=== PATIENT | male | born 1960 | race Caucasian/White ===

== ENCOUNTER 2020-07-28 11:48 | Emergency (ER) | payer OTHER, SELFPAY ==
[2020-07-28 12:21] VITALS: BP 138/58; PULSE 57; RESP 18; TEMP 36.5; O2SAT 99; BMI 37.5
--- NOTE | 2020-07-28 12:35 | ED.BACK ---
HPI - Back Pain/Injury General Chief Complaint: Extremity Injury, Lower Stated Complaint: back pain Time Seen by Provider: 07/28/20 12:13 Source: patient Mode of arrival: ambulatory Limitations: language barrier History of Present Illness HPI Narrative: 59 y/o male with history of chronic back pain presenting with 5 days of worsening right sided back and hip pain. Denies injury. He states he gets a flare up of this type of pain every few years. Upon review of records he was last seen here in 2019 for similar complaints. He denies numbness, tingling, weakness, incontinence. MD elicited complaint: back pain Pertinent past history: prior back pain Related Data Previous Rx's Medication Instructions Recorded cyclobenzaprine 10 mg PO TID PRN #15 tab 07/28/20 hydrocodone-acetaminophen [[place]] 1 tab PO Q8H PRN #6 tab 07/28/20 ibuprofen 600 mg PO Q8H PRN #14 tab 07/28/20 lidocaine [Lidoderm] 1 patch TOPICAL DAILY #15 ea 07/28/20 Allergies Allergy/AdvReac Type Severity Reaction Status Date / Time No Known Allergies Allergy Verified 07/28/20 12:23 Review of Systems Review of Systems: Constitutional: No Fever, No Chills Gastrointestinal: No Nausea, No Vomiting, No Diarrhea, No abdominal Pain Genitourinary: No Dysuria, No Urinary Frequency, No Hematuria Musculoskeletal: + joint pain, + Myalgias Skin: No Skin Lesions, No rash Neuro: No Weakness, No Numbness, No Dizziness, No Headache Endocrine: No Polyuria, No Polydipsia PMFSH Past Medical History Attestation statement: The following information was validated with the patient. Medical History High blood pressure Social History Social History Advance Directives: No Advance Directives Information Provided: No Physical Exam Vital Signs: Vital Signs: Last Vital Signs Temp 97.7 F 07/28/20 12:21 Pulse 57 07/28/20 12:21 Resp 18 07/28/20 12:21 BP 138/58 L 07/28/20 12:21 Pulse Ox 99 07/28/20 12:21 Body Mass Index 37.5 Appearance: Alert. Oriented X3. No acute distress. HEENT: normal inspection Respiratory: No respiratory distress. Extremities: normal LE, no edema. Back: right sided SI joint tenderness and surrounding soft tissue tenderness with spasm. Neuro: Oriented X 3. No motor deficit. No sensory deficit. Course Course Course Narrative: 59 y/o male with right sided low back pain and buttock pain that has been present for 5 days - worsened today after he tied his shoes. Similar to previous episodes. No red flag symptoms. Will treat with NSAID, muscle relaxer and short course of [place]. Patient will f/u with PCP on Thursday. Stable for d/c. MDM - Back Pain/Injury Differential Diagnosis Differential diagnosis: Likely lumbar radiculopathy, sciatica and strain of lumbar region Critical Care Time Critical Care Time Critical Care Time: No Discharge Plan Discharge Clinical Impression: Strain of lumbar region Qualifiers: Encounter type: initial encounter Qualified Code(s): S39.012A - Strain of muscle, fascia and tendon of lower back, initial encounter Patient Disposition: Home, Self-Care Instructions: Low Back Strain (ED), Lower Back Exercises (ED) Additional Instructions: Use ice and/or heat to the area several times per day. Limit bending, lifting >10 lbs, or twisting motions. Take prescribed medications as needed for pain/discomfort. Follow up with your doctor next week. If you develop weakness, numbness, tingling, incontinence or loss of function come back to the ER for further evalution. Prescriptions: New cyclobenzaprine 10 mg tablet 10 mg PO TID PRN (Reason: muscle spasm) Qty: 15 RF: 0 lidocaine [Lidoderm] 5 % adhesive patch,medicated 1 patch topical DAILY Qty: 15 RF: 0 ibuprofen 600 mg tablet 600 mg PO Q8H PRN (Reason: pain) Qty: 14 RF: 0 hydrocodone-acetaminophen [[place]] 5-325 mg tablet 1 tab PO Q8H PRN (Reason: pain) Qty: 6 RF: 0 Interventions: ED Discharge Assessment Last Done: 07/28/20 12:46 Discharge Date/Time: 07/28/20 12:50 Print Language: Turkish
== END 2020-07-28 12:50 | disposition home or self-care (01) ==
PROVIDERS: Emergency Provider Internal Medicine; PCP Internal Medicine
DX: S39.012A Strain of muscle, fascia and tendon of lower back, initial encounter (principal); X58.XXXA Exposure to other specified factors, initial encounter; Y93.9 Activity, unspecified; Y92.9 Unspecified place or not applicable; Y99.9 Unspecified external cause status; Z79.899 Other long term (current) drug therapy
CPT/HCPCS: 99283

== ENCOUNTER 2020-08-13 08:30 | Emergency (ER) | payer OTHER, SELFPAY ==
[2020-08-13 09:36] VITALS: BP 130/60; PULSE 100; RESP 20; TEMP 37.2; O2SAT 95; BMI 37.5
--- NOTE | 2020-08-13 09:46 | XR_ITS ---
EXAMINATION: XR CHEST CLINICAL INFORMATION: Cough. Pneumonia. COMPARISON: Chest 09/03/2019 TECHNIQUE: Frontal view of the chest was obtained. FINDINGS: The lungs are hypoexpanded but clear of acute process. The heart size and pulmonary vascularity is normal. There is moderate spondylosis dorsal spine. No lytic process. XR/XR chest 1V IMPRESSION: Unremarkable chest exam.
--- NOTE | 2020-08-13 09:48 | ED.URI ---
HPI - URI/Sore Throat General Chief Complaint: Upper Respiratory Symptoms Stated Complaint: sore throat Time Seen by Provider: 08/13/20 09:36 Source: patient Mode of arrival: ambulatory Limitations: no limitations History of Present Illness HPI Narrative: Patient presents to the ED for coughing, stuffy nose, sore throat, body aches, and night sweats for the past 4 days. Patient denies any chest pain. Patient denies any swelling of lower extremities, calf pain, coughing up blood. Patient states presently he does not have any shortness of breath. MD elicited complaint: cough, sore throat, rhinorrhea and nasal congestion Related Data Previous Rx's Medication Instructions Recorded cyclobenzaprine 10 mg PO TID PRN #15 tab 07/28/20 hydrocodone-acetaminophen [[place]] 1 tab PO Q8H PRN #6 tab 07/28/20 ibuprofen 600 mg PO Q8H PRN #14 tab 07/28/20 lidocaine [Lidoderm] 1 patch TOPICAL DAILY #15 ea 07/28/20 albuterol sulfate 2 puff INHALATION Q6H PRN #18 g 08/13/20 benzonatate [Tessalon [place]] 100 mg PO TID PRN #15 cap 08/13/20 Allergies Allergy/AdvReac Type Severity Reaction Status Date / Time No Known Allergies Allergy Verified 07/28/20 12:23 Review of Systems Review of Systems: Yes all other systems are reviewed and are negative Constitutional: Constitutional: Reports as per HPI, Reports no additional constitutional complaints, Reports body ache(s), Reports chills, Reports fever(s) and Reports night sweats Eyes: Eyes: Reports as per HPI and Reports no additional eye complaints ENT: Reports system reviewed and no additional complaints, except as documented and Reports as per HPI Cardiovascular: Cardiovascular: Reports as per HPI and Reports no additional cardiovascular complaints Respiratory: Respiratory: Reports as per HPI, Reports no additional respiratory complaints, Reports change in phlegm color (White), Reports chest congestion, Reports cough, Denies pain on inspiration, Denies pain with cough, Reports dyspnea (Resolved) and Reports wheezing Genitourinary: Genitourinary: Reports no additional male genitourinary complaints and Reports as per HPI Musculoskeletal: Musculoskeletal: Reports no additional musculoskeletal complaints and Reports as per HPI Neurologic: Reports system reviewed and no additional complaints, except as documented and Reports as per HPI Psychiatric: Psychiatric: Reports no additional psychiatric complaints and Reports as per HPI Allergic/Immunologic: Allergic/Immunologic: Reports wheezing [facility] Past Medical History Medical History High blood pressure Social History Social History Advance Directives: No Advance Directives Information Provided: No Physical Exam Vital Signs: Vital Signs: Last Vital Signs Temp 99.0 F 08/13/20 09:36 Pulse 99 08/13/20 11:25 Resp 18 08/13/20 11:25 BP 133/71 08/13/20 11:25 Pulse Ox 99 08/13/20 11:25 Body Mass Index 37.5 Const: General: cooperative, healthy appearing, comfortable, no acute distress, well developed, alert, awake and Physically active Orientation/consciousness: patient oriented x3 HENMT: Head: Yes normal to inspection and Yes No palpable skull fracture present Ears: hearing grossly normal bilaterally, external ears normal and TM's normal bilaterally Face and sinus: Yes normal facial exam and Yes sinuses nontender Mouth: Normal oral and palatal mucosa present, lip normal and tongue normal Throat: Yes posterior oropharynx normal, Yes tonsils normal and Yes uvula midline Eyes: General: appearance normal, both eyes and all related structures Neck: Neck: Yes normal visual inspection, Yes full ROM, Yes no lymphadenopathy, Yes no meningeal signs, Yes trachea midline, Yes supple and No tender Chest: Chest palpation & inspection: normal inspection of the chest, normal palpation of entire chest wall and no localized rib tenderness Resp: Effort & Inspection: normal respiratory effort, able to speak in complete sentences, Actively coughing, respiratory effort not decreased, no grunting, not labored, no nasal flaring, no paradoxical thoraco-abdom movements, no pursed lip breathing, no retractions, no segmental paradox chest wall movement, no stridor, not tachypneic, no tracheal deviation and no tripod positioning Auscultation: no crackles, no rales, no rhonchi and wheezes expiratory wheezes Cardio: Jugular venous distension: no JVD Heart sounds: S1 normal heart sound present and S2 normal heart sound present GI: Inspection: Yes normal to inspection and No abdominal wall ecchymosis Palpation (GI): Soft to palpation, not firm, nontender, no guarding and not rigid : General: No CVA tenderness and Yes no CVA tenderness Back/Spine/Pelvis: Back: no CVA tenderness, No CVA tenderness and No back tenderness Skin: General skin exam: no rashes or lesions noted Neuro: General: patient oriented x3, gait normal, no meningeal signs and CN's II-XI intact bilaterally Cranial nerves: Yes CN's II-XII intact bilaterally Extrem: General: Yes normal to inspection and Yes full ROM Psych: Appearance: grossly normal, well kempt and not disheveled Course Course Course Narrative: Patient has wheezing on lungs. Patient denies any history of asthma. Patient does admit to history of bronchitis usually has this every year around this time and it resolved after being given albuterol inhaler. Patient presently does not have albuterol inhaler at home. Patient had chest x-ray, COVID swab, and rapid strep swab sent. Patient also given Tylenol. Patient is not in any distress. Reevaluation(s) Reevaluation #1: Patient not in any respiratory distress. Time: 10:00 Reevaluation #2: Patient's chest x-ray is normal. Time: 10:17 Reevaluation #3: Patient to be discharged with coughing medication, and albuterol pump. Awaiting rapid strep result. Time: 10:53 Additional Reevaluation(s): Rapid strep result negative. Patient is safe for discharge MDM - URI/Sore Throat MDM Narrative Medical decision making narrative: Bronchitis/URI Discharge Plan Discharge Clinical Impression: Bronchitis Patient Disposition: Home, Self-Care Instructions: Acute Bronchitis (ED) Additional Instructions: Return to the ED immediately for shortness of breath, chest pain, coughing up blood, swelling of lower extremity, intractable fever, weakness, or any other concerning symptoms. Recommend 14 days self-isolation if COVID test come back positive or symptoms worsen. Prescriptions: New albuterol sulfate 90 mcg/actuation HFA aerosol inhaler 2 puff inhalation Q6H PRN (Reason: wheezing) Qty: 18 RF: 0 benzonatate [Tessalon Perles] 100 mg capsule 100 mg PO TID PRN (Reason: cough) Qty: 15 RF: 0 No Action cyclobenzaprine 10 mg tablet 10 mg PO TID PRN (Reason: muscle spasm) Qty: 15 RF: 0 lidocaine [Lidoderm] 5 % adhesive patch,medicated 1 patch topical DAILY Qty: 15 RF: 0 ibuprofen 600 mg tablet 600 mg PO Q8H PRN (Reason: pain) Qty: 14 RF: 0 hydrocodone-acetaminophen [[place]] 5-325 mg tablet 1 tab PO Q8H PRN (Reason: pain) Qty: 6 RF: 0 Referrals: Nic Avitia MD [Primary Care Provider] - 2 days (Bronchitis. COVID testing pending) Stand Alone Forms: Work/School Release Interventions: ED Discharge Assessment Last Done: 08/13/20 12:00 Discharge Date/Time: 08/13/20 11:50 Print Language: Occitan
[2020-08-13] MEDS: Acetaminophen 325 MG TABLET 650 MG PO (10:14)
[2020-08-13 11:25] VITALS: BP 133/71; PULSE 99; RESP 18; O2SAT 99
[2020-08-13] MEDS: Albuterol Sulfate 90 MCG 8 GM INHALER 4 PUFF INHALE (11:26)
--- NOTE | 2020-08-13 12:00 | PC.NURSE ---
pt instructed on appropriate use of inhaler with spacer. VS WNL.
== END 2020-08-13 11:50 | disposition home or self-care (01) ==
PROVIDERS: Physician Assistant; Emergency Provider Emergency Medicine; PCP Internal Medicine
DX: J20.9 Acute bronchitis, unspecified (principal); Z20.828 Contact with and (suspected) exposure to other viral communicable diseases; I10 Essential (primary) hypertension
CPT/HCPCS: 71045; 87071; 87147; 87880; 99284; U0003

== ENCOUNTER 2021-10-02 13:41 | Outpatient (REF) | payer OTHER, SELFPAY ==
--- NOTE | ~2021-10-02 | XR_ITS ---
EXAMINATION: XR CHEST CLINICAL INFORMATION: Post Covid condition, wheezing and chills prostate. COMPARISON: None TECHNIQUE: 2 views of the chest were obtained. FINDINGS: No significant abnormality is noted involving the heart, lungs, mediastinum, bony thorax or soft tissues. XR/XR chest 2V IMPRESSION: Unremarkable chest examination.
== END 2021-10-02 13:42 | disposition home or self-care (01) ==
LOC: HO.XRAY 13:41
PROVIDERS: Absent Provider Internal Medicine; PCP Internal Medicine; Visit Provider Emergency Medicine
DX: R68.83 Chills (without fever) (principal); R06.2 Wheezing; U09.9 Post COVID-19 condition, unspecified
CPT/HCPCS: 71046

== ENCOUNTER 2023-05-05 08:27 | Outpatient (REF) | payer OTHER, SELFPAY ==
[2023-05-05 10:47] LABS: Anion Gap 10 (12-20); Blood Urea Nitrogen 14 mg/dL (9-16); Carbon Dioxide 31 mmol/L (22-29); Chloride 102 mmol/L (96-108); Estimated Glomerular Filt Rate 57; Potassium 3.1 mmol/L (3.3-5.1); Sodium 140 mmol/L (135-145)
[2023-05-05 11:24] LABS: Protein/Creatinine Ratio, Ur 0.06 (<0.2); Total Protein Urine Random 27 mg/dL (<12)
== END 2023-05-05 08:28 | disposition home or self-care (01) ==
LOC: HO.LAB 08:27
PROVIDERS: PCP Internal Medicine; Visit Provider Internal Medicine Nephrology
DX: I12.9 Hypertensive chronic kidney disease with stage 1 through stage 4 chronic kidney disease, or unspecified chronic kidney disease (principal); N18.31 Chronic kidney disease, stage 3a
CPT/HCPCS: 36415; 80051; 82310; 82565; 82570; 84156; 84520

== ENCOUNTER 2023-06-01 08:28 | Outpatient (REF) | payer OTHER, SELFPAY ==
[2023-06-01 12:15] LABS: Cholesterol 125 mg/dL (<200); HDL Cholesterol 32 mg/dL (>40); LDL Cholesterol Calculated 63 mg/dL (<100); Triglycerides 154 mg/dL (<150)
[2023-06-01 12:16] LABS: Alanine Aminotransferase 23 U/L (0-40); Albumin Level 3.9 g/dL (3.5-5.0); Alkaline Phosphatase 58 U/L (39-117); Anion Gap 10 (12-20); Aspartate Amino Transferase 22 U/L (5-37); Bilirubin Direct 0.3 mg/dL (0.0-0.5); Bilirubin Total 0.7 mg/dL (0.0-1.0); Blood Urea Nitrogen 13 mg/dL (9-16); Calcium 8.9 mg/dL (8.4-10.2); Carbon Dioxide 32 mmol/L (22-29); Chloride 100 mmol/L (96-108); Estimated Glomerular Filt Rate > 60; Glucose Random 114 mg/dL (60-115); Potassium 3.2 mmol/L (3.3-5.1); Sodium 139 mmol/L (135-145); Total Protein 7.3 g/dL (6.5-8.0)
[2023-06-01 13:06] LABS: Reflex LDLD? No
== END 2023-06-01 08:29 | disposition home or self-care (01) ==
LOC: HO.HHCL 08:28
PROVIDERS: Visit Provider Internal Medicine
DX: I10 Essential (primary) hypertension (principal)
CPT/HCPCS: 36415; 80048; 80061; 80076

== ENCOUNTER 2023-06-10 11:09 | Outpatient (REF) | payer OTHER, SELFPAY | END 2023-06-10 11:10 | disposition home or self-care (01) | LOC: HO.HHCL 11:09 | PROVIDERS: Visit Provider Internal Medicine | DX: I10 Essential (primary) hypertension (principal) | CPT/HCPCS: 36415; 80048 ==

== ENCOUNTER 2023-12-08 11:53 | Outpatient (REF) | payer OTHER, SELFPAY ==
[2023-12-08 13:55] LABS: Anion Gap 9 (12-20); Blood Urea Nitrogen 14 mg/dL (9-16); Calcium 9.3 mg/dL (8.4-10.2); Carbon Dioxide 34 mmol/L (22-29); Chloride 101 mmol/L (96-108); Estimated Glomerular Filt Rate > 60; Glucose Random 140 mg/dL (60-115); Potassium 3.6 mmol/L (3.3-5.1); Sodium 140 mmol/L (135-145)
== END 2023-12-08 11:54 | disposition home or self-care (01) ==
LOC: HO.HHCL 11:53
PROVIDERS: Visit Provider Internal Medicine
DX: I10 Essential (primary) hypertension (principal)
CPT/HCPCS: 36415; 80048

== ENCOUNTER 2024-10-12 08:10 | Outpatient (REF) | payer MEDICARE, SELFPAY ==
--- OUTSIDE RECORDS SUMMARY | 2024-10-12 08:20 | XMS_ITS | Encounter Summary ---
Author Organization [employer] Address [address] [place] [address] Care Team Providers Care Folder Gluer Operator Name Role Phone Nic Swain MD Primary Care Provide r Encounter Details Date Type Department Care Team (Latest Contact Info) Description 10/11/2024 Travel Social History Tobacco Use Types Packs/Day Years Used Date Smoking Tobacco: Never Passive Smoke Exposure: Never Smokeless Tobacco: Never Alcohol Use Standard Drinks/Week Comments Never 0 (1 standard drink = 0.6 oz pur e alcohol) Depression Answer Date Recorded Patient Health Questionnaire-9 Score 1 10/11/2024 Patient Health Questionnaire-9 Score 1 10/11/2024 Last PHQ-9: Questionnaire Data Not on file 0 10/11/2024 Housing Stability Answer Date Recorded What is your housing situation today? I have [employer] [employer] 10/11/[address] you li ve. Do you have problems with any of the following? None of the above 10/11/2024 Food Insecurity Answer Date Recorded Within the past 12 months, y ou worried that your food would run out before you got money to buy more: Never True 10/11/2024 Within the past 12 months,th e food you bought just didn't last and you didn't have enough money to get more: Never True 07/2025 Transportation Answer Date Recorded In the past 12 months, has l ack of transportation kept you from medical appts, meetings, work or from getting things needed for daily living? No 10/11/2024 Utilities Answer Date Recorded In the past 12 months, has t he electric, gas, oil or water company threatened to shut off services in your home? No 10/11/2024 Depression Answer Date Recorded Patient Health Questionnaire-2 Score 0 10/11/2024 Internet Access Answer Date Recorded Internet Access Q1 I am not sure 10/11/2024 Internet Access Q2 Not on file 10/11/2024 Sex and Gender Information Value Date Recorded Sex Assigned at Male 06/30/2022 10:17 AM EDT Legal Sex Male 10:17 AM EDT Gender Identity Male 06/30/2022 10:17 AM EDT Sexual Orientation Straight 06/30/2022 10 :17 AM EDT documented as of this encounter Plan of Treatment Upcoming Encounters Date Type Department Care Team (Late st Contact Info) Description 01/10/2025 1:15 PM EDT Office Visit [facility] [address] [place] [address] Nic Swain MD [address] [place] [id number] documented as of this encounter Visit Diagnoses Not on filedocumented in this encounter Additional Health Concerns Assessment Noted Time PHQ-9 Depression Total Score: 1 10/11/19 25 1:15 PM EST documented as of this encounter Care Teams Folder Gluer Operator Relationship Specialty Start Date End Date Nic Swain MD [address] [place] [id number] PCP - General Internal Medicine 05/09/14 documented as of this encounter
--- OUTSIDE RECORDS SUMMARY | 2024-10-12 08:21 | XMS_ITS | Encounter Summary ---
Author Organization [employer] Address [address] [place] [address] [address] [place] [address] Care Team Providers Care Consumer Relations Specialist Name Role Phone Nic Swain MD Primary Care Provide r Reason for Visit * Reason Onset Date Comments Appointment Confirmation 10/05/2024 Encounter Details Date Type Department Care Team ([facility] st Contact Info) Description 10/05/2024 Telephone [facility] [address] [place], [place] [phone] Nic Swain MD [address] [place], [place] [phone] Appointment Confirmation Social History Tobacco Use Types Packs/Day Years Used Date Smoking Tobacco: Never Passive Smoke Exposure: Never Smokeless Tobacco: Never Alcohol Use Standard Drinks/Week Comments Never 0 (1 standard drink = 0.6 oz pur e alcohol) Depression Answer Date Recorded Patient Health Questionnaire-9 Score 0 02/03/2023 Housing Stability Answer Date Recorded What is your housing situation today? I have [employer] 06/16/[address] you li ve. Do you have problems with any of the following? None of the above 06/16/2023 Food Insecurity Answer Date Recorded Within the past 12 months, y ou worried that your food would run out before you got money to buy more: Never True 06/16/2023 Within the past 12 months,th e food you bought just didn't last and you didn't have enough money to get more: Never True Transportation Answer Date Recorded In the past 12 months, has l ack of transportation kept you from medical appts, meetings, work or from getting things needed for daily living? No 06/16/2023 Utilities Answer Date Recorded In the past 12 months, has t he electric, gas, oil or water company threatened to shut off services in your home? No 06/16/2023 Depression Answer Date Recorded Patient Health Questionnaire-2 Score 0 02/03/2023 Sex and Gender Information Value Date Recorded Sex Assigned at Male 06/30/2022 10:17 AM EDT Legal Sex Male 10:17 AM EDT Gender Identity Male 06/30/2022 10:17 AM EDT Sexual Orientation Straight 06/30/2022 10 :17 AM EDT documented as of this encounter Miscellaneous Notes * Telephone Encounter - Katelynn Bajwa [place] - 10/05/2024 10:26 AM EST Contacted pt in regards to appt for tomorrow needing to be changed due to PCP being out. Couldn't LVM with appt details but will sen a letter. LB documented in this encounter Plan of Treatment Upcoming Encounters Date Type Department Care Team (Late st Contact Info) Description 01/10/2025 1:15 PM EDT Office Visit [facility] [address] [place] [phone] Nic Swain MD [address] [place] [address] documented as of this encounter Visit Diagnoses Not on filedocumented in this encounter Additional Health Concerns Assessment Noted Time PHQ-9 Depression Total Score: 0 02/04/20 23 2:25 PM EDT documented as of this encounter Care Teams Consumer Relations Specialist Relationship Specialty Start Date End Date Nic Swain MD [address] [place] [address] PCP - General Internal Medicine 05/09/14 documented as of this encounter
--- OUTSIDE RECORDS SUMMARY | 2024-10-12 08:21 | XMS_ITS | Clinical Summary ---
Author Organization [employer] Address [address] [place] [address] 7[address] [place] [address] Care Team Providers Care Manager Secondary Name Role Phone Nic Swain MD Primary Care Provide r Allergies No known active allergies Medications busPIRone (Buspar) 10 MG tablet 10/26/19 23 Active clonazePAM (KlonoPIN) 2 MG tablet Take 2 mg by mouth at bedtime. 10/13/19 23 Active sertraline (Zoloft) 100 MG tablet Take 200 mg by mouth in the morning. 08/13/20 22 Active omeprazole (PriLOSEC) [address] capsule TAKE 1 CAPSULE(20 MG) BY MOUTH EVERY DAY BEFORE A MEAL 90 capsule 1 12/10/19 24 Active zolpidem (Ambien) 5 MG tabletIndications :Primary insomnia Take 1 tablet (5 mg) by mouth if needed at bedtime for sleep. 30 tablet 3 10/11/19 25 026 Active atenolol (Tenormin) 25 MG tabletIndications :Primary hypertension TAKE 1/2 TABLET BY MOUTH EVERY MORNING 45 tablet 1 10/11/19 25 Active hydroCHLOROthiazi de (HYDRODiuril) 25 MG tabletIndications :Primary hypertension TAKE 1 TABLET(25 MG) BY MOUTH IN THE MORNING 90 tablet 1 10/11/19 25 Active aspirin (Aspirin Low Dose) 81 MG EC tabletIndications :Primary hypertension TAKE 1 TABLET BY MOUTH DAILY 90 tablet 3 10/11/19 25 Active atorvastatin (Lipitor) 20 MG tabletIndications :Primary hypertension,Mixe d hyperlipidemia TAKE 1 TABLET(20 MG) BY MOUTH IN THE MORNING 90 tablet 1 10/11/19 25 Active lisinopril 40 MG tabletIndications :Primary hypertension Take 1 tablet (40 mg) by mouth Once per day. 90 tablet 1 10/11/19 25 Active potassium chloride CR (Klor-Con M10) 10 MEQ ER tabletIndications :Hypokalemia Take 1 tablet (10 mEq) by mouth Once per day. Do not crush or chew. 90 tablet 10/11/19 25 Active levothyroxine (Synthroid) 25 MCG tabletIndications :Acquired hypothyroidism Take 1 tablet (25 mcg) by mouth before breakfast. 30 tablet 3 10/11/19 25 Active QUEtiapine (SEROquel) 300 MG tablet 10/26/19 23 025 Discontinued(Th erapy completed) zaleplon (Sonata) 10 MG capsule 10/26/19 23 025 Discontinued(Th erapy completed) hydroCHLOROthiazi de (HYDRODiuril) 25 MG tabletIndications :Primary hypertension TAKE 1 TABLET(25 MG) BY MOUTH IN THE MORNING 90 tablet 1 12/08/19 24 025 Discontinued(Re order (will not trigger notification to Pharmacy)) lisinopril 40 MG tabletIndications :Primary hypertension Take 1 tablet (40 mg) by mouth in the morning. 90 tablet 1 12/08/19 24 025 Discontinued(Re order (will not trigger notification to Pharmacy)) atorvastatin (Lipitor) 20 MG tabletIndications :Primary hypertension,Mixe d hyperlipidemia TAKE 1 TABLET(20 MG) BY MOUTH IN THE MORNING 90 tablet 1 12/08/19 24 025 Discontinued(Re order (will not trigger notification to Pharmacy)) atenolol (Tenormin) 25 MG tabletIndications :Primary hypertension TAKE 1/2 TABLET BY MOUTH EVERY MORNING 45 tablet 1 12/08/19 24 025 Discontinued(Re order (will not trigger notification to Pharmacy)) aspirin (Aspirin Low Dose) 81 MG EC tabletIndications :Primary hypertension TAKE 1 TABLET BY MOUTH DAILY 90 tablet 3 12/08/19 24 025 Discontinued(Re order (will not trigger notification to Pharmacy)) potassium chloride CR (Klor-Con M10) 10 MEQ ER tabletIndications :Hypokalemia TAKE 1 TABLET(10 MEQ) BY MOUTH IN THE MORNING. DO NOT CRUSH OR CHEW 90 tablet 05/06/20 24 025 Discontinued(Re order (will not trigger notification to Pharmacy)) Active Problems Problem Noted Date Diagnosed Date Abnormal serum thyroid stimulating hormone (TSH) level 10/11/2024 Assessment & Plan (10/11/2024 1:39 PM EST): Pt apparently was diagnosed with hypothyroidism while living in [place] Has been taking synthroid 50 mcg 1/2 tab po daily Continue for that Plan: Repeat TSH Obesity, morbid 12/08/2023 Assessment & Plan (12/08/2023 11:23 AM EDT): Patient has been counseled and educated about diet and exercise. Personal goal of weight loss discussedPatient has comorbidity of: HTN Stage 3a chronic kidney disease 12/08/2023 Assessment & Plan (10/11/2024 1:11 PM EST): Last seen by Urology 05/06/2023 Repeat BMP Assessment & Plan (12/08/2023 11:24 AM EDT): Last seen by Urology 05/06/2023 1 year follow up was recommended Missing teeth, acquired 06/18/2023 Generalized gingival recession 06/18/2023 Ankylosis of tooth 06/18/2023 Preventative health care 02/03/2023 Assessment & Plan (10/11/2024 1:13 PM EST): ANDERSON: PSA 12/25/20 Normal, Will repeat Colonoscopy: Normal 01/17/2014 Dr Jase Wright. Pt moving to [place] will need one once he has relocated Assessment & Plan (12/08/2023 11:33 AM EDT): ANDERSON: PSA 12/25/20 Normal Colonoscopy: Normal 01/17/2014 Dr Jase Wright. Pt moving to [place] will need one once he has relocated Assessment & Plan (02/03/2023 2:37 PM EDT): ANDERSON: Declined PSA 12/25/20 Normal Colonoscopy: Normal 01/17/2014 Dr Jase Wright Obesity (BMI 30-39.9) 01/29/2023 Assessment & Plan (02/03/2023 2:39 PM EDT): Patient has been counseled and educated about diet and exercise. Personal goal of weight loss discussedPatient has comorbidity of: HTN Dental calculus 10/29/2022 Toothache 06/19/2015 Hypertension 03/25/2012 Assessment & Plan (10/11/2024 1:26 PM EST): Pt here for a f/u BP elevated He is on a regimen of: Atenolol 25 mg po daily, Hctz 12.5 mg po daily, and Lisinopril 40mg po daily Pt tells me he has been eating high in salt and not sleeping well Plan: Continue current regimen until he has repeat labs BMP Lab Results Component Value Date NA 140 12/08/2023 NA 139 06/10/2023 K 3.6 12/08/2023 K 3.2 (L) 06/10/2023 CL 101 12/08/2023 CL 99 06/10/2023 BUN 14 12/08/2023 BUN 14 06/10/2023 CREATININE 1.15 12/08/2023 CREATININE 1.13 06/10/2023 Today will order a repeat BMP patient advised to adhere to a low sodium diet, encouraged about medication compliance, counseled about weight loss. Pt evaluated by Cardiology Underwent stress ECHO that was normal f/u with me in 3 months Assessment & Plan (12/08/2023 11:22 AM EDT): Pt here for a f/u BP controlled He is on a regimen of: Atenolol 25 mg po daily, Hctz 12.5 mg po daily, and Lisinopril 40mg po daily Plan: Continue current regimen BMP 06/10/2023 showed K 3.2 we started K supplementation Today will order a repeat BMP patient advised to adhere to a low sodium diet, encouraged about medication compliance, counseled about weight loss. Pt evaluated by Cardiology Underwent stress ECHO that was normal f/u with me in 3 months Assessment & Plan (05/28/2023 11:46 AM EDT): Pt here for a f/u BP controlled He is on a regimen of: Atenolol 25 mg po daily, Hctz 12.5 mg po daily, and Lisinopril 40mg po daily Plan: Continue current regimen BMP 08/29/2022 Normal will repeat patient advised to adhere to a low sodium diet, encouraged about medication compliance, counseled about weight loss. Pt evaluated by Cardiology Underwent stress ECHO that was normal f/u with me in 3 months Assessment & Plan (02/03/2023 2:45 PM EDT): Pt here for a f/u BP uncontrolled He is on a regimen of: Atenolol 12.5 mg po daily, Hctz 12.5 mg po daily, and Lisinopril 40mg po daily Plan: Increase hydrochlorothiazide to 25 mg po daily BMP 08/29/2022 Normal will repeat patient advised to adhere to a low sodium diet, encouraged about medication compliance, counseled about weight loss. Pt evaluated by Cardiology Underwent stress ECHO that was normal f/u with me in 3 months Metabolic syndrome X 08/31/1961 Assessment & Plan (02/03/2023 2:37 PM EDT): FBS 08/29/2022 was 105 Once again today we discussed the need for him to loose weight and adhere to a low sugar, low carbohydrate diet. Hyperlipidemia 08/31/1961 Assessment & Plan (10/11/2024 1:12 PM EST): Pt here for a f/u Most recent lipid profile from: Lab Results Component Value Date TRIG 154 (H) 06/01/2023 TRIG 109 08/29/2022 CHOL 125 06/01/2023 LDLCHOLCAL 63 06/01/2023 HDL 32 (L) 06/01/2023 Currently on a regimen of: Atorvastatin 20 mg po qhs. Lipids on target, Plan: Continue Atorvastatin 20 mg po qhs , repeat Lipid profile advised to try to adhere to a low cholesterol diet, counseled and educated about diet and exercise, Patient encouraged to come up with a personal goal for weight loss. Assessment & Plan (02/03/2023 2:36 PM EDT): Pt here for a f/u Most recent lipid profile from: 08/29/2022 shows a total cholesterol of: 118 triglycerides of: 109 HDL of: 38 and LDL of: 69 Currently on a regimen of: Atorvastatin 20 mg po qhs. Lipids on target, Plan: Continue Atorvastatin 20 mg po qhs advised to try to adhere to a low cholesterol diet, counseled and educated about diet and exercise, Patient encouraged to come up with a personal goal for weight loss. Anxiety 08/31/1961 Assessment & Plan (10/11/2024 1:35 PM EST): Doing well Pt used to be under the care of a psychotherapist and Dr Nicolas Crystal his psychiatrist at [facility]. Pt was taking Klonopin 1mg po qhs He has been without for > 1 month Plan: Ambien 5 mg po at bedtime prescribed for insomnia He needs to reconnect with psychiatric services, referred to [facility] and our animal taxonomist Assessment & Plan (02/03/2023 2:36 PM EDT): Doing well Pt under the care of a psychotherapist and Dr Nicolas Crystal his psychiatrist at [facility]. Pt taking Klonopin 1mg po qhs Zaleplon 10 mg po qhs Encounters Date Type Department Care Team Description 10/11/2024 1:15 PM EST Office Visit [facility] [address] [place] [phone] Nic Swain MD Primary hypertension (Primary Dx); Stage 3a chronic kidney disease (CMS/HCC); Mixed hyperlipidemia; Anxiety; Abnormal serum thyroid stimulating hormone (TSH) level; Primary insomnia; Hypokalemia; Acquired hypothyroidism; Preventative health care 10/11/2024 Travel 10/05/2024 Telephone [facility] [address] [place] [address] Nic Swain MD Appointment Confirmation 09/26/2024 Telephone [facility] [address] [place] [address] Nic Swain MD Chart Prep from Last 3 Months Immunizations Name Administration Dates Next Due Hep B, adult 04/19/2007,07/12/2003,06/09/2003 Influenza injectable quadriv alent preservative free 05/28/2023,07/15/2022,06/01/2020 Influenza, IIV3, injectable 05/13/2010 Moderna Covid-19 Vaccine 12+ 08/02/2021,11/29/19 21,10/31/2020 Pneumococcal Polysaccharide PPSV23 06/24/2012 TD (adult), 2 Lf tetanus tox oid, preservative free, adsorbed 06/09/2003 Tdap 09/20/2013 Zoster, Recombinant 07/10/2021,05/08/2021 Social History Tobacco Use Types Packs/Day Years Used Date Smoking Tobacco: Never Passive Smoke Exposure: Never Smokeless Tobacco: Never Tobacco Cessation:Counseling Given: Not Answered Alcohol Use Standard Drinks/Week Comments Never 0 [...] Orientation Straight 06/30/2022 10 :17 AM EDT Last Filed Vital Signs Vital Sign Reading Time Taken Comments Blood Pressure 154/73 10/11/2024 1:09 PM EST Pulse 60 10/11/2024 1:09 PM EST Temperature 36.2 ??C (97.1 ??F) 10/11/2024 1:09 PM ES T Respiratory Rate 20 10/11/2024 1:09 PM EST Oxygen Saturation 99% 10/11/2024 1:09 PM EST Inhaled Oxygen Concentration - - Weight 114 kg (251 lb 9.6 oz) 10/11/2024 1:09 PM EST Height 170.2 cm (5' 7 ) 10/11/2024 1:09 PM EST Body Mass Index 39.41 10/11/2024 1:09 PM EST Plan of Treatment Upcoming Encounters Date Type Department Care Team (Late st Contact Info) Description 01/10/2025 1:15 PM EDT Office Visit [facility] [address] [place] [address] Nic Swain MD [address] [place] [address] Health Maintenance Due Date Last Done Comments CT Colonography 1958 FIT DNA/Cologuard 1958 FIT 1958 FOBT 1960 Sigmoidoscopy 1958 Hepatitis C Screening 1976 Pneumococcal Vaccine: 50+ Years (2 of 2 - PCV) 06/24/2013 06/24/2012 DTaP/Tdap/Td Vaccines (2 - Td or Tdap) 09/20/2023 09/20/2013, 06/09/2003 Dental Oral Exam 12/19/2023 06/18/2023, 10/2022, 10/29/2022, Additional history exists Dental Prophylaxis 12/19/2023 06/18/2023, 10/29/2022 Colonoscopy 01/18/2024 01/17/2014 Colorectal Cancer Screening 01/18/2024 COVID-19 Vaccine ( season) 2024 08/02/2021, 11/28/2020, 10/31/2020 Influenza Vaccine (#1) 2024 , 07/15/2022, 06/01/2020, Additional history exists Dental X-Ray: Bitewings 06/19/2024 06/18/2023, 10/29 Dental X-Ray: Full Mouth 07/02/2024 07/01/2021 Alcohol/Substance Use Screening 10/11/2025 10/11/2024 Depression Screening 10/11/2025 10/11/2024, 10/11/19 SDOH Screening 10/11/2025 10/11/2024 Tobacco Screening 10/11/2025 10/11/2024 Lipid Panel 06/01/2028 06/01/2023, 08/02, 12/26/2021, Additional history exists RSV Patients and Patients Aged 60 years or older (1 - 1-dose 75+ series) 2033 Hepatitis B Vaccines Completed 04/19/2007, 07/12/2003, 06/09/2003 Zoster Vaccines Completed 07/10/2021, 05/08/2021 HIB Vaccines Aged Out No longer eligi ble based on patient's age to complete this topic HPV Vaccines Aged Out No longer eligi ble based on patient's age to complete this topic Hepatitis A Vaccines Aged Out No long er eligible based on patient's age to complete this topic IPV Vaccines Aged Out No longer eligi ble based on patient's age to complete this topic Meningococcal Vaccine Aged Out No mono nicolle eligible based on patient's age to complete this topic RSV under 20 months Aged Out No longe r eligible based on patient's age to complete this topic Rotavirus Vaccines Aged Out No longer eligible based on patient's age to complete this topic Procedures Procedure Name Priority Date/Time Associated Diagnosis Comments Full PROPHYLAXIS - ADULT Routine 06/18/2023 3:00 PM EDT Dental calculus BITEWINGS - 4 RADIOGRAPHIC IMAGES Routine 06/18/2023 3:00 PM EDT Dental calculus Missing teeth, acquired Generalized gingival recession PERIODIC ORAL EVALUATION - ESTABLISHED PATIENT Routine 06/18/2023 3:00 PM EDT LIPID PANEL WITH REFLEX TO DIRECT LDL Routine 06/01/2023 8:31 AM EDT Primary hypertension COLONOSCOPY Routine 01/17/2014 from Last 3 Months or Most Recently Relevant to Health Maintenance Results * (ABNORMAL) Lipid Panel with Reflex to Direct LDL (06/01/2023 8:31 AM EDT) Triglycerides 154(H) <150 mg/dL [facility] Comment:Desirable Triglyceri de: less than 150 mg/dLBorderline High Triglyceride 150-199 mg/dLHigh Triglyceride: 200-499 mg/dLVery High Triglyceride: greater than or equal to 5OO mg/dL Cholesterol 125 <200 mg/dL [facility] Comment:Desirable Cholestero l: less than 200 mg/dLBorderline High Cholesterol: 200-239 mg/dLHigh Cholesterol: greater than 239 mg/dL LDL Cholesterol Calculated 63 <100 mg/dL [facility] Comment:Desirable LDL: less than 100 mg/dLNear Optimal/Above Optimal LDL: 110- 129 mg/dLBorderline High LDL: 130-159 mg/dLHigh LDL: 160-189 mg/dLVery High LDL: greater than or equal to 190 mg/dL HDL Cholesterol 32(L) >40 mg/dL [facility] Comment:Desirable HDL: great er than 40 mg/dL Note: This HDL assay may give artificially low results in patients with liver disease. Blood 06/01/2023 8:31 AM EDT 06/01/2023 11:31 AM EDT us Nic Little MD LAB BLOOD ORDERABLES Final Result [facility] [address] [place] [address] [phone] * Colonoscopy (01/17/2014) Colonoscopy Normal Normal 01/17/2014 Narrative Kavita Paul - 01/17/2014 12:49 PM EDT Recommended 10 year follow up , unable to find path results follow up extracted from provider note us Historical Provider HEALTH MAINTENANCE Edited Result - Final from Last 3 Months or Most Recently Relevant to Health Maintenance Insurance [facility] Care Teams Manager Secondary Relationship Specialty Start Date End Date Nic Swain MD [address] [place] [id number] PCP - General Internal Medicine 05/09/14
--- OUTSIDE RECORDS SUMMARY | 2024-10-12 08:21 | XMS_ITS | Encounter Summary ---
Author Organization [employer] Address [address] [facility] 7 [place] [address] Care Team Providers Care Finnish Rubber Name Role Phone Nic Swain MD Primary Care Provide r Reason for Visit * Reason Comments Med Refill Encounter Details Date Type Department Care Team (Late st Contact Info) Description 05/08/2024 Refill [facility] [address] [place], [place] [phone] Nic Swain MD [address] [place], [place] [phone] Hypokalemia Social History Tobacco Use Types Packs/Day Years [...] Description 01/10/2025 1:15 PM EDT Office Visit [facility] [address] [place], [place] [phone] Nic Swain MD [address] [place] [address] documented as of this encounter Visit Diagnoses Diagnosis Hypokalemia Hypopotassemia documented in this encounter Additional Health Concerns Assessment Noted Time PHQ-9 Depression Total Score: 0 02/04/20 23 2:25 PM EDT documented as of this encounter Care Teams Finnish Rubber Relationship Specialty Start Date End Date Nic Swain MD [address] [place] [address] PCP - General Internal Medicine 05/09/14 documented as of this encounter
--- OUTSIDE RECORDS SUMMARY | 2024-10-12 08:21 | XMS_ITS | Encounter Summary ---
Author Organization [employer] Address [address] [place] [address] 7 [place] [address] Care Team Providers Care Shore Working Supervisor Name Role Phone Nic Swain MD Primary Care Provide r Encounter Details Date Type Department Care Team (Latest Contact Info) Description 07/01/2021 Abstract [facility] Dental, Provider, DDS Social History Tobacco Use Types Packs/Day Years Used Date Smoking Tobacco: Never Assessed Sex and Gender Information Value Date Recorded Sex Assigned at Male 06/30/2022 10:17 AM EDT Legal Sex Male 10:17 AM EDT Gender Identity Male 06/30/2022 10:17 AM EDT Sexual Orientation Straight 06/30/2022 10 :17 AM EDT documented as of this encounter Plan of Treatment Upcoming Encounters Date Type Department Care Team (Late st Contact Info) Description 01/10/2025 1:15 PM EDT Office Visit [facility] [address] [place] [address] Nic Swain MD [address] [place] [address] documented as of this encounter Visit Diagnoses Not on filedocumented in this encounter Care Teams Shore Working Supervisor Relationship Specialty Start Date End Date Nic Swain MD [address] [place], [place] [phone] PCP - General Internal Medicine 05/09/14 documented as of this encounter
--- OUTSIDE RECORDS SUMMARY | 2024-10-12 08:21 | XMS_ITS | Encounter Summary ---
Author Organization [employer] Address [address] [place] [address] [address] [place] [address] Care Team Providers Care Documentation Liaison Name Role Phone Nic Swian MD Primary Care Provide r Encounter Details Date Type Department Care Team (Latest Contact Info) Description 11/16/2018 Abstract [facility] Dental, Provider, DDS Social History Tobacco [...] Description 01/10/2025 1:15 PM EDT Office Visit [facility] [address] [place] [address] Nic Swain MD [address] [place] [address] documented as of this encounter Visit Diagnoses Not on filedocumented in this encounter Care Teams Documentation Liaison Relationship Specialty Start Date End Date Nic Swain MD [address] [place], [place] [phone] PCP - General Internal Medicine 05/09/14 documented as of this encounter
--- OUTSIDE RECORDS SUMMARY | 2024-10-12 08:21 | XMS_ITS | Encounter Summary ---
Author Organization [employer] Address [address] [place] [address] [address] [place] [address] Care Team Providers Care Seat Cover Cutter Name Role Phone Nic Swain MD Primary Care Provide r Reason for Visit * Reason Onset Date Comments Chart Prep 09/26/2024 Encounter Details Date Type Department Care Team ([facility] st Contact Info) Description 09/26/[address] [facility] [address] [place], [place] [phone] Nic Swain MD [address] [place], [place] [phone] Chart Prep Social History Tobacco Use Types Packs/Day Years [...] Telephone Encounter - Katelynn Bajwa [place] - 09/26/2024 11:09 AM EST Chart Prep Labs: done Images: not applicable Vaccines due: Covid Due, Tdap Due, PCV20 Due, Flu Due, and RSV in Pharmacy Due Referrals: Not Applicable Screenings: Colonoscopy Overdue care gaps: Sbirt, SDOH, PHQ-9, and Oral Health Chart prep for upcoming appt with Dr.Esparza lundy. LB documented in this encounter Plan of Treatment Upcoming Encounters Date Type Department Care Team (Late st Contact Info) Description 01/10/2025 1:[address] EDT Office [address] [facility] [address] [place] [address] Nic Swain MD [address] [place] [address] documented as of this encounter Visit Diagnoses Not on filedocumented in this encounter Additional Health Concerns Assessment Noted Time PHQ-9 Depression Total Score: 0 02/04/20 23 2:25 PM EDT documented as of this encounter Care Teams Seat Cover Cutter Relationship Specialty Start Date End Date Nic Swain MD [address] [place] [address] PCP - General Internal Medicine 05/09/14 documented as of this encounter
--- OUTSIDE RECORDS SUMMARY | 2024-10-12 08:21 | XMS_ITS | Clinical Summary ---
Author Organization [facility] Address [address] [place] [address] Phone Care Team Providers Care Aircraft Powerplant Repairer Name Role Phone Nic Chinchilla MD Primary Care Provider Unav ailable Allergies No known active allergies Medications zaleplon (SONATA) 10 MG capsule Take 10 mg by mouth every night Active atenolol (TENORMIN) 25 MG tablet Take 12.5 mg by mouth 1 (one) time each day Active lisinopril 40 MG tablet Take 40 mg by mouth 1 (one) time each day Active aspirin (ST JAYDA) 81 MG EC tablet Take 81 mg by mouth 1 (one) time each day Active omeprazole (PriLOSEC) [address] capsule Take 20 mg by mouth 1 (one) time each day Do not crush or chew. Active clonazePAM (KlonoPIN) 2 MG tablet Take 1 tablet by mouth 1 (one) time each day 06/23/2021 Active sertraline (ZOLOFT) 100 MG tablet Take 1 tablet by mouth 1 (one) time each day 06/23/2021 Active QUEtiapine (SEROquel) 300 MG tablet Take 1 tablet by mouth 1 (one) time each day 06/23/2021 Active busPIRone (BUSPAR) 10 MG tablet Take 1 tablet by mouth 1 (one) time each day 06/23/2021 Active atorvastatin (LIPITOR) 20 MG tablet Take 20 mg by mouth 1 (one) time each day Active hydroCHLOROthiaz kd 25 MG tablet Take 1 tablet by mouth 1 (one) time each day 02/03/2023 Active Active Problems Problem Noted Date Diagnosed Date Hypertension 06/26/2021 Stage 3a chronic kidney disease 06/26/2021 Acute renal insufficiency 06/25/2021 Family History Medical History Relation Comments Hypertension Mother Relation Status Comments Father Mother Alive Social History Tobacco Use Types Packs/Day Years Used Date Smoking Tobacco: Former Smokeless Tobacco: Former Tobacco Cessation:Counseling Given: Not Answered Alcohol Use Standard Drinks/Week Comments Never 0 (1 standard drink = 0.6 oz pur e alcohol) Sex and Gender Information Value Date Recorded Sex Assigned at Not on file Legal Sex Male 3:52 PM EDT Gender Identity Not on file Sexual Orientation Not on file Last Filed Vital Signs Vital Sign Reading Time Taken Comments Blood Pressure 120/60 05/06/2023 1:32 PM EDT Pulse 55 05/06/2023 1:32 PM EDT Temperature - - Respiratory Rate - - Oxygen Saturation 97% 04/30/2022 2:41 PM EDT Inhaled Oxygen Concentration - - Weight 115 kg (253 lb) 05/06/2023 1:32 PM EDT Height - - Body Mass Index - - Plan of Treatment Health Maintenance Due Date Last Done Comments Pneumococcal Vaccine: 65+ Ye ars (1 of 2 - PCV) 1966 Pneumococcal Vaccine: Pediat rics (0 to 5 Years) and At-Risk Patients (6 to 64 Years) (1 of 2 - PCV) 1966 Colorectal Cancer Screening: Annual FOBT 12/08/2007 Colorectal Cancer Screening: Colonoscopy 12/08/2007 Colorectal Cancer Screening: Sigmoidoscopy 12/08/2007 Influenza Vaccine (#1) 2024 Hepatitis B Vaccine Aged Out No longe r eligible based on patient's age to complete this topic Insurance [id number] MEDICARE [facility] MEDICARE Care Teams Aircraft Powerplant Repairer Relationship Specialty Start Date End Date Nic Chinchilla MD PCP - General Internal Medicine 04/24/21
--- OUTSIDE RECORDS SUMMARY | 2024-10-12 08:22 | XMS_ITS | Encounter Summary ---
Author Organization [employer] Address [address] [place] [address] 7 [place] [address] Care Team Providers Care Drafter Civil Name Role Phone Nic Swain MD Primary Care Provide r Reason for Referral * Consultation (Routine) - Pending Review Specialty Diagnoses / Procedures Referred By Amanda t Referred To Contact Gastroenterology Diagnoses Preventative health care Nic Swain MD [address] [place] [address] Phone: tel: fax: Doug Huang MD [address] [place] [address] [facility] [address] [place] [address] Phone: tel: fax: Referral ID Status Reason Start Date Expiration Date Visits Requested Visits Authorized [id number] Pending Review Specialty Services Required 10/11/2024 10/11/2025 1 1 * Consultation (Routine) - Authorized Specialty Diagnoses / Procedures Referred By Contac t Referred To Contact Psychiatry / Behavioral Health Diagnoses Anxiety Nic Swain MD [address] [place] [address] Phone: tel: fax: Referral ID Status Reason Start Date Expiration Date Visits Requested Visits Authorized [id number] Authorized Specialty Services Required 10/11/2024 10/11/2025 1 1 * Consultation (Routine) - Authorized Specialty Diagnoses / Procedures Referred By Contac t Referred To Contact Behavioral Health Diagnoses Anxiety Nic Swain MD [address] [place] [address] Phone: tel: fax: Referral ID Status Reason Start Date Expiration Date Visits Requested Visits Authorized [id number] Authorized Specialty Services Required 10/11/2024 10/11/2025 1 1 Reason for Visit * Reason Comments Follow-up Encounter Details Date Type Department Care Team (Late st Contact Info) Description 10/11/2024 1:15 PM EST Office Visit [facility] [address] [place], [place] [phone] Nic Swain MD [address] [place] [address] Primary hypertension (Primary Dx); Stage 3a chronic kidney disease (CMS/HCC); Mixed hyperlipidemia; Anxiety; Abnormal serum thyroid stimulating hormone (TSH) level; Primary insomnia; Hypokalemia; Acquired hypothyroidism; Preventative health care Social History Tobacco Use Types Packs/Day Years [...] AM EDT documented as of this encounter Last Filed Vital Signs Vital Sign Reading [...] Mass Index 39.41 10/11/2024 1:09 PM EST documented in this encounter Progress Notes * Nic Little MD - 10/11/2024 1:15 PM EST SUBJECTIVE Zaire Rivers is a 63 y.o. male who presents for Follow-up. Hypertension This is a chronic problem. Pertinent negatives include no chest pain, headaches or shortness of breath. Review of Systems Constitutional: Negative for fever. HENT: Negative for sore throat. Respiratory: Negative for cough and shortness of breath. Cardiovascular: Negative for chest pain. Gastrointestinal: Negative for abdominal pain. Neurological: Negative for headaches. No Known Allergies OBJECTIVE Vitals: 10/11/24 1309 BP: (!) 154/73 BP Location: Left arm Patient Position: Sitting BP Cuff Size: Large adult Pulse: 60 Resp: 20 Temp: 97.1 ??F (36.2 ??C) TempSrc: Temporal SpO2: 99% Weight: 251 lb 9.6 oz (114 kg) Height: 5' 7 (1.702 m) Physical Exam Vitals reviewed. Constitutional: Appearance: Normal appearance. HENT: Head: Normocephalic and atraumatic. Right Ear: External ear normal. Left Ear: External ear normal. Nose: Nose normal. Mouth/Throat: Mouth: Mucous membranes are moist. Eyes: Conjunctiva/sclera: Conjunctivae normal. Cardiovascular: Rate and Rhythm: Normal rate and regular rhythm. Pulmonary: Effort: Pulmonary effort is normal. Breath sounds: Normal breath sounds. Skin: General: Skin is warm. Neurological: Mental Status: He is alert. Mental status is at baseline. Assessment/Plan Problem List Items Addressed This Visit Hypertension - Primary Pt here for a f/u BP elevated [...] normal f/u with me in 3 months Relevant Medications atenolol (Tenormin) 25 MG tablet hydroCHLOROthiazide (HYDRODiuril) 25 MG tablet aspirin (Aspirin Low Dose) 81 MG EC tablet atorvastatin (Lipitor) 20 MG tablet lisinopril 40 MG tablet Other Relevant Orders Basic Metabolic Panel Stage 3a chronic kidney disease (CMS/HCC) Last seen by Urology 05/06/2023 Repeat BMP Hyperlipidemia Pt here for a f/u Most recent [...] diet, counseled and educated about diet and exercise,Patient encouraged to come up with a personal goal for weight loss. Relevant Medications atorvastatin (Lipitor) 20 MG tablet Other Relevant Orders Lipid Panel, Standard Anxiety Doing well Pt used to be under the care of a psychotherapist and Dr Nicolas Crystal his psychiatrist at [facility]. Pt was taking Klonopin 1mg po qhs He has been without for > 1 month Plan: Ambien 5 mg po at bedtime prescribed for insomnia He needs to reconnect with psychiatric services, referred to [facility] and our fast food assistant restaurant manager Relevant Orders Referral to Behavioral Health Referral to Behavioral Health Psychiatry TSH with Reflex to Free T4 Abnormal serum thyroid stimulating hormone (TSH) level Pt apparently was diagnosed with hypothyroidism while living in [place] Has been taking synthroid 50 mcg 1/2 tab po daily Continue for that Plan: Repeat TSH Preventative health care ANDERSON: PSA 12/25/20 Normal, Will repeat Colonoscopy: Normal 01/17/2014 Dr Jase Wright. Pt moving to [place] will need one once he has relocated Relevant Orders PSA, Screen Referral to Gastroenterology Other Visit Diagnoses Primary insomnia Relevant Medications zolpidem (Ambien) 5 MG tablet Hypokalemia Relevant Medications potassium chloride CR (Klor-Con M10) 10 MEQ ER tablet Acquired hypothyroidism Relevant Medications levothyroxine (Synthroid) 25 MCG tablet documented in this encounter Miscellaneous Notes * Assessment & Plan Note - Nic Little MD - 10/11/2024 1:24 PM EST Associated Problem(s): Abnormal serum thyroid stimulating hormone (TSH) level Pt apparently was diagnosed with hypothyroidism while living in [place] Has been taking synthroid 50 mcg 1/2 tab po daily Continue for that Plan: Repeat TSH * Assessment & Plan Note - Nic Little MD - 10/11/2024 1:23 PM EST Associated Problem(s): Anxiety Doing well Pt used to be under the care of a psychotherapist and Dr Nicolas Crystal his psychiatrist at [facility]. Pt was taking Klonopin 1mg po qhs He has been without for > 1 month Plan: Ambien 5 mg po at bedtime prescribed for insomnia He needs to reconnect with psychiatric services, referred to [facility] and our fast food assistant restaurant manager * Assessment & Plan Note - Nic Little MD - 10/11/2024 1:13 PM EST Associated Problem(s): Preventative health care ANDERSON: PSA 12/25/20 Normal, Will repeat Colonoscopy: Normal 01/17/2014 Dr Jase Wright. Pt moving to [place] will need one once he has relocated * Assessment & Plan Note - Nic Little MD - 10/11/2024 1:12 PM EST Associated Problem(s): Hyperlipidemia Pt here for a f/u Most recent [...] diet, counseled and educated about diet and exercise,Patient encouraged to come up with a personal goal for weight loss. * Assessment & Plan Note - Nic Little MD - 10/11/2024 1:11 PM EST Associated Problem(s): Stage 3a chronic kidney disease (CMS/HCC) Last seen by Urology 05/06/2023 Repeat BMP * Assessment & Plan Note - Nic Little MD - 10/11/2024 1:11 PM EST Associated Problem(s): Hypertension Pt here for a f/u BP elevated [...] normal f/u with me in 3 months documented in this encounter Plan of Treatment Upcoming Encounters Date Type Department Care Team (Late st Contact Info) Description 01/10/2025 1:15 PM EDT Office Visit [facility] [address] [place] [address] Nic Swain MD [address] [place] [address] Scheduled Orders Name Type Priority Associated Diagnoses Orde r Schedule Lipid Panel, Standard Lab Routine Mixed hyperlipidemia Ordered: 10/11/2024 Basic Metabolic Panel Lab Routine Primary hypertension Ordered: 10/11/2024 PSA, Screen Lab Routine Preventative health care Ordered: 10/11/2024 TSH with Reflex to Free T4 Lab Routine Anxiety Ordered: 10/11/2024 Scheduled Referrals Name Type Priority Associated Diagnoses Order Schedule Referral to Behavioral Health Outpatient Referral Routine Anxiety Expected: 10/11/2024 (Approximate), Expires: 10/11/2025 Referral to Behavioral Health Psychiatry Outpatient Referral Routine Anxiety Expected: 10/11/2024 (Approximate), Expires: 10/11/2025 Referral to Gastroenterology Outpatient Referral Routine Preventative health care Expected: 10/11/2024 (Approximate), Expires: 10/11/2025 documented as of this encounter Visit Diagnoses Diagnosis Primary hypertension- Primary Unspecified essential hypertension Stage 3a chronic kidney disease (CMS/HCC) Mixed hyperlipidemia Anxiety Anxiety state, unspecified Abnormal serum thyroid stimulating hormone (TSH) level Primary insomnia Persistent disorder of initiating or maintaining sleep Hypokalemia Hypopotassemia Acquired hypothyroidism Unspecified hypothyroidism Preventative health care Routine general medical examination at a health care facility documented in this encounter Additional Health Concerns Assessment Noted Time PHQ-9 Depression Total Score: 1 10/11/19 25 1:15 PM EST documented as of this encounter Care Teams Drafter Civil Relationship Specialty Start Date End Date Nic Swain MD [address] [place] [address] PCP - General Internal Medicine 05/09/14 documented as of this encounter
--- OUTSIDE RECORDS SUMMARY | 2024-10-12 08:22 | XMS_ITS | Encounter Summary ---
Author Organization [employer] Address [address] [place] [address] 7 [place] [address] Care Team Providers Care Coder Operator Name Role Phone Nic Swain MD Primary Care Provide r Encounter Details Date Type Department Care Team (Late st Contact Info) Description 01/02/2023 Abstract [facility] [address] [place] [address] [phone] Nic Swain MD [address] [place] [address] [phone] Social History Tobacco Use Types Packs/Day Years Used Date Smoking Tobacco: Never Passive Smoke Exposure: Never Smokeless Tobacco: Never Sex and Gender Information Value Date Recorded Sex Assigned at Male 06/30/2022 10:17 AM EDT Legal Sex Male 10:17 AM EDT Gender Identity Male 06/30/2022 10:17 AM EDT Sexual Orientation Straight 06/30/2022 10 :17 AM EDT documented as of this encounter Plan of Treatment Upcoming Encounters Date Type Department Care Team (Late st Contact Info) Description 01/10/2025 1:15 PM EDT Office Visit [facility] [address] [place] [address] [phone] Nic Swain MD [address] [place], [place] [phone] documented as of this encounter Procedures Procedure Name Priority Date/Time Associated Diagnosis Comments COLONOSCOPY Routine 01/17/2014 documented in this encounter Results * Colonoscopy (01/17/2014) Colonoscopy Normal Normal 01/17/2014 Narrative Kavita Paul - 01/17/2014 12:49 PM EDT Recommended 10 year follow up , unable to find path results follow up extracted from provider note us Historical Provider [facility] MAINTE[facility]NCE Edited Result - Final documented in this encounter Visit Diagnoses Not on filedocumented in this encounter Care Teams Coder Operator Relationship Specialty Start Date End Date Nic Swain MD [address] [place] [phone] PCP - General Internal Medicine 05/09/14 documented as of this encounter
--- OUTSIDE RECORDS SUMMARY | 2024-10-12 08:22 | XMS_ITS | Encounter Summary ---
Author Organization [employer] Address [address] [facility] 7 [place] [address] Care Team Providers Care Cell Attendant Name Role Phone Nic Swain MD Primary Care Provide r Reason for Visit * Reason Comments Med Refill Encounter Details Date Type Department Care Team (Late st Contact Info) Description 11/12/2023 Refill [facility] [address] [place], [place] [phone] Nic Swain MD [address] [place], [place] [phone] Primary hypertension Social History Tobacco Use Types Packs/Day Years [...] Description 01/10/2025 1:15 PM EDT Office Visit [facility] [address] [place] [address] Nic Swain MD [address] [place] [address] documented as of this encounter Visit Diagnoses Diagnosis Primary hypertension Unspecified essential hypertension documented in this encounter Additional Health Concerns Assessment Noted Time PHQ-9 Depression Total Score: 0 02/04/20 23 2:25 PM EDT documented as of this encounter Care Teams Cell Attendant Relationship Specialty Start Date End Date Nic Swain MD [address] [place] [address] PCP - General Internal Medicine 05/09/14 documented as of this encounter
[2024-10-12 12:00] LABS: Anion Gap 9 (12-20); Blood Urea Nitrogen 16 mg/dL (9-16); Calcium 8.9 mg/dL (8.4-10.2); Carbon Dioxide 32 mmol/L (22-29); Chloride 101 mmol/L (96-108); Cholesterol 128 mg/dL (<200); Estimated Glomerular Filt Rate > 60; Glucose Random 114 mg/dL (60-115); HDL Cholesterol 38 mg/dL (>40); LDL Cholesterol Calculated 67 mg/dL (<100); Potassium 3.2 mmol/L (3.3-5.1); Sodium 139 mmol/L (135-145); Triglycerides 118 mg/dL (<150)
[2024-10-12 12:15] LABS: TSH reflex Free T4 3.03 uIU/mL (0.32-4.0)
[2024-10-12 12:51] LABS: Prostate Specific Antigen Scr 1.03 ng/mL (<0.05-4.0)
== END 2024-10-12 08:11 | disposition home or self-care (01) ==
LOC: HO.HHCL 08:10
PROVIDERS: Visit Provider Internal Medicine
DX: Z00.00 Encounter for general adult medical examination without abnormal findings (principal); I10 Essential (primary) hypertension; F41.9 Anxiety disorder, unspecified; E78.2 Mixed hyperlipidemia; Z12.5 Encounter for screening for malignant neoplasm of prostate
CPT/HCPCS: 36415; 80048; 80061; 84153; 84443

== ENCOUNTER 2024-10-21 12:20 | Outpatient (REF) | payer MEDICARE, SELFPAY ==
--- OUTSIDE RECORDS SUMMARY | 2024-10-21 13:02 | XMS_ITS | Encounter Summary ---
Author Organization [employer] Address [address] [place] [address] 7 [place] [address] Care Team Providers Care Purification Operator Name Role Phone Nic Swain MD Primary Care Provide r Reason for Visit * Reason Onset Date Comments Chart Prep 09/26/2024 Encounter Details Date Type Department Care Team ([facility] st Contact Info) Description 09/26/2024 Telephone [facility] [address] [place], [place] [phone] Nic Swain MD [address] [place], [place] [phone] Chart Prep Social History Tobacco Use Types [...] Description 01/10/2025 1:15 PM EDT Office Visit [facility] [address] [place] [address] Nic Swain MD [address] [place] [address] 02/24/2025 8:00 AM EDT Office Visit [facility] [address] [place] [address] Fela Jeter [address] [place] [address] documented as of this encounter Visit Diagnoses Not on filedocumented in this encounter Additional Health Concerns Assessment Noted Time PHQ-9 Depression Total Score: 0 02/04/20 23 2:25 PM EDT documented as of this encounter Care Teams Purification Operator Relationship Specialty Start Date End Date Nic Swain MD [address] [place] [phone] PCP - General Internal Medicine 05/09/14 documented as of this encounter
--- OUTSIDE RECORDS SUMMARY | 2024-10-21 13:02 | XMS_ITS | Encounter Summary ---
Author Organization [employer] Address [address] [place] [address] 7 [place] [address] Care Team Providers Care Stockroom Keeper Name Role Phone Nic Swain MD Primary Care Provide r Reason for Visit * Reason Onset Date Comments Appointment Confirmation 10/05/2024 Encounter Details Date Type Department Care Team ([facility] st Contact Info) Description 10/05/2024 Telephone [facility] [address] [place], [place] [phone] Nic Swain MD [address] [place], [place] [phone] Appointment Confirmation Social History Tobacco Use Types [...] Description 01/10/2025 1:15 PM EDT Office Visit [facility] [address] [place] [address] Nic Swain MD [address] [place] [address] 02/24/2025 8:00 AM EDT Office Visit [facility] [address] [place] [address] Corona, Fela [address] [place] [address] documented as of this encounter Visit Diagnoses Not on filedocumented in this encounter Additional Health Concerns Assessment Noted Time PHQ-9 Depression Total Score: 0 02/04/20 23 2:25 PM EDT documented as of this encounter Care Teams Stockroom Keeper Relationship Specialty Start Date End Date Nic Swain MD [address] [place] [phone] PCP - General Internal Medicine 05/09/14 documented as of this encounter
--- OUTSIDE RECORDS SUMMARY | 2024-10-21 13:02 | XMS_ITS | Clinical Summary ---
Author Organization [employer] Address [address] [place] [address] 7t [place] [address] Care Team Providers Care Glass Washer Name Role Phone Nic Swain MD Primary Care Provide r Allergies No known active allergies Medications * This document contains information received from the source organization and may not represent a complete record from that organization. busPIRone (Buspar) 10 MG tablet 10/26/19 23 [...] was diagnosed with hypothyroidism while living in [place] Has been taking synthroid 50 mcg 1/2 [...] 01/17/2014 Dr Jase Wright. Pt moving to [place] will need one once he has relocated Assessment & Plan (12/08/2023 11:33 AM EDT): ANDERSON: PSA 12/25/20 Normal Colonoscopy: Normal 01/17/2014 Dr Jase Wright. Pt moving to [place] will need one once he has relocated [...] and Dr Nicolas Crystal his psychiatrist at [facility]. Pt was taking Klonopin 1mg po qhs He has been without for > 1 month Plan: Ambien 5 mg po at bedtime prescribed for insomnia He needs to reconnect with psychiatric services, referred to [facility] and our credit analysis manager Assessment & Plan (02/03/2023 2:36 PM EDT): Doing well Pt under the care of a psychotherapist and Dr Nicolas Crystal his psychiatrist at [facility]. Pt taking Klonopin 1mg po qhs Zaleplon 10 mg po qhs Encounters * This document contains information received from the source organization and may not represent a complete record from that organization. Date Type Department Care Team Description 10/13/[address] [address] Libby Rogers RN Results 10/11/2024 1:15 PM EST Office Visit [address] [address] Nic Swain MD Primary hypertension (Primary Dx); Stage 3a chronic kidney disease (CMS/HCC); Mixed hyperlipidemia; Anxiety; Abnormal serum thyroid stimulating hormone (TSH) level; Primary insomnia; Hypokalemia; Acquired hypothyroidism; Preventative health care 10/11/2024 Travel 10/05/[address] [address] Nic Swain MD Appointment Confirmation 09/26/2024 Telephone [facility] [address] [place] [address] Nic Swain MD Chart Prep from Last [...] Description 01/10/2025 1:15 PM EDT Office Visit [facility] [address] [place] [address] Nic Swain MD [address] [place] [address] 02/24/2025 8:00 AM EDT Office Visit [facility]ULT D[facility] [address] [place] [address] Jamie Jeteraris [address] [place] [address] Health Maintenance Due Date Last Done Comments [...] 10/11/2024 Tobacco Screening 10/11/2025 10/11/2024 Lipid Panel 10/12/2029 10/12/2024, 10/2022, 08/29/2022, Additional history exists RSV Patients and Patients [...] Procedure Name Priority Date/Time Associated Diagnosis Comments TSH W/REFLEX TO FT4 Routine 10/12/2024 8 :14 AM EST Anxiety PSA, SCREEN Routine 10/12/2024 8:14 AM EST Preventative health care BASIC METABOLIC PANEL Routine 10/12/2024 8:14 AM EST Primary hypertension LIPID PANEL, STANDARD Routine 10/12/2024 8:14 AM EST Mixed hyperlipidemia Full PROPHYLAXIS - ADULT Routine 06/18/2023 3:00 PM EDT Dental calculus BITEWINGS - 4 RADIOGRAPHIC IMAGES Routine 06/18/2023 3:00 PM EDT Dental calculus Missing teeth, acquired Generalized gingival recession PERIODIC ORAL EVALUATION - ESTABLISHED PATIENT Routine 06/18/2023 3:00 PM EDT HM COLONOSCOPY Routine 01/17/2014 from Last 3 Months or Most Recently Relevant to Health Maintenance Results * PSA, Screen (10/12/2024 8:14 AM EST) PSA, Total 1.03 <0.05 - 4.0 ng/mL [facility] Comment:PSA methodology: Abb juarez Alichance i ChemiluminescentMicroparticle Immunoassay (CMIA) Blood Venous blood specimen / Unknown 10/12/2024 8:14 AM EST 10/12/2024 11:13 AM EST us Nic Little MD LAB BLOOD ORDERABLES Final Result [facility] [address] [place] [phone] * TSH with Reflex to Free T4 (10/12/2024 8:14 AM EST) TSH reflex Free T4 3.03 0.32 - 4.0 uIU/mL [facility] Blood Venous blood specimen / Unknown 10/12/2024 8:14 AM EST 10/12/2024 11:13 AM EST Nic Little MD LAB BLOOD ORDERABLES Final Result Performing Organization Address City/[facility] Co de Phone Number [facility] [address] [place] [address] [phone] * (ABNORMAL) Lipid Panel, Standard (10/12/2024 8:14 AM EST) Triglycerides 118 <150 mg/dL [facility] Comment:Desirable Triglyceri de: less than 150 mg/dLBorderline High Triglyceride 150-199 mg/dLHigh Triglyceride: 200-499 mg/dLVery High Triglyceride: greater than or equal to 5OO mg/dL Cholesterol 128 <200 mg/dL [facility] Comment:Desirable Cholestero l: less than 200 mg/dLBorderline High Cholesterol: 200-239 mg/dLHigh Cholesterol: greater than 239 mg/dL LDL Cholesterol Calculated 67 <100 mg/dL [facility] Comment:Desirable LDL: less than 100 mg/dLNear Optimal/Above Optimal LDL: 110- 129 mg/dLBorderline High LDL: 130-159 mg/dLHigh LDL: 160-189 mg/dLVery High LDL: greater than or equal to 190 mg/dL HDL Cholesterol 38(L) >40 mg/dL [facility] Comment:Desirable HDL: great er than 40 mg/dL Note: This HDL assay may give artificially low results in patients with liver disease. Blood Venous blood specimen / Unknown 10/12/2024 8:14 AM EST 10/12/2024 11:13 AM EST Nic Little MD LAB BLOOD ORDERABLES Final Result Performing Organization Address City/[facility]/ZIP Co de Phone Number [facility] [address] [place] [phone] * (ABNORMAL) Basic Metabolic Panel (10/12/2024 8:14 AM EST) Sodium 139 135 - 145 mmol/L [facility] Potassium 3.2(L) 3.3 - 5.1 mmol/L [facility] Chloride 101 96 - 108 mmol/L [facility] Carbon Dioxide 32(H) 22 - 29 mmol/L [facility] Anion Gap 9(L) 12 - 20 [facility] Urea Nitrogen (BUN) 16 9 - 16 mg/dL [facility] Creatinine, Serum 1.07 0.5 - 1.4 mg/dL [facility] Estimated Glomerular Filt Rate >60 [facility] Comment:Chronic Kidney Disea se: Estimated GFR < 60 mL/min/1.72o6Olsqhn Kidney Disease: Estimated GFR < 15 mL/min/1.73m2 Glucose 114 60 - 115 mg/dL [facility] Calcium 8.9 8.4 - 10.2 mg/dL [facility] Blood Venous blood specimen / Unknown 10/12/2024 8:14 AM EST 10/12/2024 11:13 AM EST us Nic Little MD LAB BLOOD ORDERABLES Final Result [facility] [address] [place] [address] [phone] * Hm Colonoscopy (01/17/2014) Colonoscopy Normal Normal 01/17/2014 Narrative Kavita Paul - 01/17/2014 12:49 PM EDT Recommended 10 year follow up , unable to find path results follow up extracted from provider note us Historical Provider HEALTH MAINTENANCE Edited Result - Final from Last 3 Months or Most Recently Relevant to Health Maintenance Insurance [id number] PPO Care Teams Glass Washer Relationship Specialty Start Date End Date Nic Swain MD [address] [place] [phone] PCP - General Internal Medicine 05/09/14
--- OUTSIDE RECORDS SUMMARY | 2024-10-21 13:02 | XMS_ITS | Clinical Summary ---
Author Organization [facility] Address [address] [place] [phone] Phone Care Team Providers Care Rock Drill Operator Name Role Phone Nic Chinchilla MD Primary [...] patient's age to complete this topic Insurance [id number] MED[facility] Care Teams Rock Drill Operator Relationship Specialty Start Date End Date Nic Chinchilla MD PCP - General Internal Medicine 04/24/21
--- OUTSIDE RECORDS SUMMARY | 2024-10-21 13:02 | XMS_ITS | Encounter Summary ---
Author Organization [employer] Address [address] [place] [address] 7 [place] [address] Care Team Providers Care Medication Tech Name Role Phone Nic Swain MD Primary Care Provide r Reason for Visit * Reason Onset Date Comments Results 10/13/2024 Encounter Details Date Type Department Care Team ([facility] st Contact Info) Description 10/13/2024 Telephone [facility] MEDICINE [address] [place], [place] [phone] Libby Rogers RN [address] [place], [place] [phone] Results Social History Tobacco Use Types Packs/Day Years [...] encounter Miscellaneous Notes * Telephone Encounter - Libby Rogres RN - 10/13/2024 3:30 PM EST While reviewing PAQ, reviewed pt with K of 3.2. Pt with Hx of hypokalemia. On hydrochlorothiazide and Klor-con 10MEQ daily. However, pt was in [place] last month and didn't have enough klor-con to last the whole trip so was taking every other day. He now is back. Discussed with PCP face to face. Orders are for pt to resume daily Klor-con and recheck labs in 1 we. Pt informed of this. States will comein or Thursday next week. Orders placed. Reminder sent to green nurses to make sure he comesin. documented in this encounter Plan of Treatment Upcoming Encounters Date Type Department Care Team (Late st Contact Info) Description 01/10/2025 1:15 PM EDT Office Visit [facility] MEDICINE [address] [place] [address] Nic Swain MD [address] [place] [address] 02/24/2025 8:00 AM EDT Office Visit [facility] ADULT DENTAL [address] [place] [address] Fela Jeter [address] [place] [address] Scheduled Orders Name Type Priority Associated Diagnoses Orde r Schedule Basic Metabolic Panel Lab Routine Hypokalemia Expected: 10/13/2024 (Approximate), Expires: 10/13/2025 documented as of this encounter Visit Diagnoses Diagnosis Hypokalemia Hypopotassemia documented in this encounter Additional Health Concerns Assessment Noted Time PHQ-9 Depression Total Score: 1 10/11/19 25 1:15 PM EST documented as of this encounter Care Teams Medication Tech Relationship Specialty Start Date End Date Nic Swain MD [address] [place] [address] PCP - General Internal Medicine 05/09/14 documented as of this encounter
--- OUTSIDE RECORDS SUMMARY | 2024-10-21 13:02 | XMS_ITS | Encounter Summary ---
Author Organization [employer] Address [address] [place] [address] 7 [place] [address] Care Team Providers Care Waste And Batting Waste Chopper Name Role Phone Nic Swain MD Primary Care Provide r Encounter Details Date Type Department Care Team (Latest Contact Info) Description 11/16/2018 Abstract [facility] CONVERSIONS Dental, Provider, DDS Social History Tobacco [...] Description 01/10/2025 1:15 PM EDT Office Visit [facility] MEDICINE [address] [place] [address] Nic Swain MD [address] [place] [address] 02/24/2025 8:00 AM EDT Office Visit [facility] ADULT DENTAL [address] [place] [address] Jamie Jeteraris [address] [place] [address] documented as of this encounter Visit Diagnoses Not on filedocumented in this encounter Care Teams Waste And Batting Waste Chopper Relationship Specialty Start Date End Date Nic Swain MD [address] [place] [address] PCP - General Internal Medicine 05/09/14 documented as of this encounter
--- OUTSIDE RECORDS SUMMARY | 2024-10-21 13:02 | XMS_ITS | Encounter Summary ---
Author Organization [employer] Address [address] [place] [address] 7 [place] [address] Care Team Providers Care Waterworks Operator Name Role Phone Nic Swain MD Primary Care Provide r Encounter Details Date Type Department Care Team (Late st Contact Info) Description 01/02/2023 Abstract [facility] MEDICINE [address] [place], [place] [phone] Nic Swain MD [address] [place], [place] [phone] Social History Tobacco Use Types Packs/Day Years [...] 1:15 PM EDT Office Visit [facility] MEDICINE [address] [place], [place] [phone] Nic Swain MD [address] [place], [place] [phone] 02/24/2025 8:00 AM EDT Office Visit [facility] ADULT DENTAL [address] [place], [place] [phone] Fela Jeter [address] [place] [address] documented as of this encounter Procedures Procedure Name Priority Date/Time Associated Diagnosis Comments COLONOSCOPY Routine 01/17/2014 documented in this encounter Results * Colonoscopy (01/17/2014) Colonoscopy Normal Normal 01/17/2014 Narrative Beverly, Kavita - 01/17/2014 12:49 PM EDT Recommended 10 year follow up , unable to find path results follow up extracted from provider note Historical Provider Vivocha MAINTENANCE Edited Result - Final documented in this encounter Visit Diagnoses Not on filedocumented in this encounter Care Teams Waterworks Operator Relationship Specialty Start Date End Date Nic Swain MD [address] [place] [address] PCP - General Internal Medicine 05/09/14 documented as of this encounter
--- OUTSIDE RECORDS SUMMARY | 2024-10-21 13:02 | XMS_ITS | Encounter Summary ---
Author Organization [employer] Address [address] [facility] 7t [place] [address] Care Team Providers Care Ict Systems Test Engineer Name Role Phone Nic Swain MD Primary [...] Description 01/10/2025 1:15 PM EDT Office Visit [facility] MEDICINE [address] [place] [address] Nic Swain MD [address] [place] [address] 02/24/2025 8:00 AM EDT Office Visit [facility] ADULT DENTAL [address] [place] [address] Corona, Fela [address] [place] [address] documented as of this encounter Visit Diagnoses Not on filedocumented in this encounter Additional Health Concerns Assessment Noted Time PHQ-9 Depression Total Score: 1 10/11/19 25 1:15 PM EST documented as of this encounter Care Teams Ict Systems Test Engineer Relationship Specialty Start Date End Date Nic Swain MD [address] [place] [address] PCP - General Internal Medicine 05/09/14 documented as of this encounter
--- OUTSIDE RECORDS SUMMARY | 2024-10-21 13:02 | XMS_ITS | Encounter Summary ---
Author Organization [employer] Address [address] [facility] 7 [place] [address] Care Team Providers Care Child Care Group Leader Name Role Phone Nic Swain MD Primary Care Provide r Reason for Visit * Reason Comments Med Refill Encounter Details Date Type Department Care Team (Late st Contact Info) Description 11/12/[address] [facility] MEDICINE [address] [place], [place] [phone] Nic Swain MD 230 [place], [place] [phone] Primary hypertension Social History Tobacco Use Types [...] 01/10/2025 1:15 PM EDT Office Visit [facility] MEDICINE [address] [place] [address] Nic Swain MD [address] [place] [address] 02/24/2025 8:00 AM EDT Office Visit [facility] ADULT DENTAL [address] [place] [address] Corona, Fela [address] [place] [address] documented as of this encounter Visit Diagnoses Diagnosis Primary hypertension Unspecified essential hypertension documented in this encounter Additional Health Concerns Assessment Noted Time PHQ-9 Depression Total Score: 0 02/04/20 23 2:25 PM EDT documented as of this encounter Care Teams Child Care Group Leader Relationship Specialty Start Date End Date Nic Swain MD [address] [place] [address] PCP - General Internal Medicine 05/09/14 documented as of this encounter
--- OUTSIDE RECORDS SUMMARY | 2024-10-21 13:02 | XMS_ITS | Encounter Summary ---
Author Organization [employer] Address [address] [place] [address] 7t [place] [address] Care Team Providers Care Conference Assistant Name Role Phone Nic Swain MD Primary Care Provide r Reason for Referral * Consultation (Routine) - Pending Review Specialty Diagnoses / Procedures Referred By Amanda curiel Referred To Contact Gastroenterology Diagnoses Preventative health care Nic Swain MD [address] [place] [address] Phone: tel: fax: Doug Huang MD [address] [place] [address] [address] [facility] [address] [place] [address] Phone: tel: fax: Referral ID Status Reason Start Date Expiration Date Visits Requested Visits Authorized [id number] Pending Review Specialty Services Required 10/11/2024 10/11/2025 1 1 * Consultation (Routine) - Pending Review Specialty Diagnoses / Procedures Referred By Amanda t Referred To Contact Psychiatry / Behavioral Health Diagnoses Anxiety Nic Swain MD [address] [place] [address] Phone: tel: fax: Referral ID Status Reason Start Date Expiration Date Visits Requested Visits Authorized [id number] Pending Review Specialty Services Required 10/11/2024 10/11/2025 1 1 * Consultation (Routine) - Closed Specialty Diagnoses / Procedures Referred By Conttravis t Referred To Contact Behavioral Health Diagnoses Anxiety Nic Swain MD [address] [place] [address] Phone: tel: fax: Referral ID Status Reason Start Date Expiration Date V isits Requested Visits Authorized [id number] Closed Specialty Services Required 10/11/2024 10/11/2025 1 1 Reason for Visit * Reason Comments Follow-up Encounter Details Date Type Department Care Team ([facility] st Contact Info) Description 10/11/2024 1:15 PM EST Office Visit [facility] [address] [place] [address] Nic Swain MD [address] [place] [address] Primary hypertension (Primary Dx); Stage 3a chronic [...] and Dr Nicolas Crystal his psychiatrist at [facility]. Pt was taking Klonopin 1mg po qhs He has been without for > 1 month Plan: Ambien 5 mg po at bedtime prescribed for insomnia He needs to reconnect with psychiatric services, referred to [facility] and our non licensed nuclear equipment operator Relevant Orders Referral to Behavioral Health Referral to Behavioral Health Psychiatry TSH with Reflex to Free T4 Abnormal serum thyroid stimulating hormone (TSH) level Pt apparently was diagnosed with hypothyroidism while living in [place] Has been taking synthroid 50 mcg 1/2 tab po daily Continue for that Plan: Repeat TSH Preventative health care ANDERSON: PSA 12/25/20 Normal, Will repeat Colonoscopy: Normal 01/17/2014 Dr Jase Wright. Pt moving to [place] will need one once he has relocated [...] was diagnosed with hypothyroidism while living in [place] Has been taking synthroid 50 mcg 1/2 tab po daily Continue for that Plan: Repeat TSH * Assessment & Plan Note - Nic Little MD - 10/11/2024 1:23 PM EST Associated Problem(s): Anxiety Doing well Pt used to be under the care of a psychotherapist and Dr Nicolas Crystal his psychiatrist at [facility]. Pt was taking Klonopin 1mg po qhs He has been without for > 1 month Plan: Ambien 5 mg po at bedtime prescribed for insomnia He needs to reconnect with psychiatric services, referred to [facility] and our non licensed nuclear equipment operator * Assessment & Plan Note - Nic Little MD - 10/11/2024 1:13 PM EST Associated Problem(s): Preventative health care ANDERSON: PSA 12/25/20 Normal, Will repeat Colonoscopy: Normal 01/17/2014 Dr Jase Wright. Pt moving to [place] will need one once he has relocated [...] 1:15 PM EDT Office Visit [facility] [address] [place] [address] Nic Swain MD [address] [place], [place] [phone] 02/24/2025 8:00 AM EDT Office Visit [facility] AD[facility] D[facility]AL [address] [place] [address] Jamie Jeteraris [address] [place], [place] [phone] Scheduled Referrals Name Type Priority Associated Diagnoses Order Schedule Referral to Behavioral Health Outpatient Referral Routine Anxiety Expected: 10/11/2024 (Approximate), Expires: 10/11/2025 Referral to Behavioral Health Psychiatry Outpatient Referral Routine Anxiety Expected: 10/11/2024 (Approximate), Expires: 10/11/2025 Referral to Gastroenterology Outpatient Referral Routine Preventative health care Expected: 10/11/2024 (Approximate), Expires: 10/11/2025 documented as of this encounter Procedures Procedure Name Priority Date/Time Associated Diagnosis Comments PSA, SCREEN Routine 10/12/2024 8:14 AM EST Preventative health care TSH W/REFLEX TO FT4 Routine 10/12/2024 8:14 AM EST Anxiety LIPID PANEL, STANDARD Routine 10/12/2024 8:14 AM EST Mixed hyperlipidemia BASIC METABOLIC PANEL Routine 10/12/2024 8:14 AM EST Primary hypertension documented in this encounter Results * TSH with Reflex to Free T4 (10/12/2024 8:14 AM EST) TSH reflex Free T4 3.03 0.32 - 4.0 uIU/mL [facility] Blood Venous blood specimen / Unknown 10/12/2024 8:14 AM EST 10/12/2024 11:13 AM EST us Nic Little MD LAB BLOOD ORDERABLES Final Result [facility] [address] [place] [address] [phone] * PSA, Screen (10/12/2024 8:14 AM EST) [facility] PSA, Total 1.03 <0.05 - 4.0 ng/mL [facility] Comment:PSA methodology: Kary Hameed i ChemiluminescentMicroparticle Immunoassay (CMIA) Blood Venous blood specimen / Unknown 10/12/2024 8:14 AM EST 10/12/2024 11:13 AM EST Nic Little MD LAB BLOOD ORDERABLES Final Result [facility] [address] [place] [phone] * (ABNORMAL) Basic Metabolic Panel (10/12/2024 8:14 AM EST) [facility] Sodium 139 135 - 145 mmol/L [facility] Potassium 3.2(L) 3.3 - 5.1 mmol/L [facility] Chloride 101 96 - 108 mmol/L [facility] Carbon Dioxide 32(H) 22 - 29 mmol/L [facility] Anion Gap 9(L) 12 - 20 [facility] Urea Nitrogen (BUN) 16 9 - 16 mg/dL [facility] Creatinine, Serum 1.07 0.5 - 1.4 mg/dL [facility] Estimated Glomerular Filt Rate >60 [facility] Comment:Chronic Kidney Disea se: Estimated GFR < 60 mL/min/1.59k6Woclyq Kidney Disease: Estimated GFR < 15 mL/min/1.73m2 Glucose 114 60 - 115 mg/dL [facility] Calcium 8.9 8.4 - 10.2 mg/dL [facility] Blood Venous blood specimen / Unknown 10/12/2024 8:14 AM EST 10/12/2024 11:13 AM EST Nic Little MD LAB BLOOD ORDERABLES Final Result Performing Organization Address [facility] Co de Phone Number [facility] [address] [place] [address] [phone] * (ABNORMAL) Lipid Panel, Standard (10/12/2024 8:14 AM EST) Triglycerides 118 <150 mg/dL [facility] Comment:Desirable Triglyceri de: less than 150 mg/dLBorderline High Triglyceride 150-199 mg/dLHigh Triglyceride: 200-499 mg/dLVery High Triglyceride: greater than or equal to 5OO mg/dL Cholesterol 128 <200 mg/dL [facility] Comment:Desirable Cholestero l: less than 200 mg/dLBorderline High Cholesterol: 200-239 mg/dLHigh Cholesterol: greater than 239 mg/dL LDL Cholesterol Calculated 67 <100 mg/dL [facility] Comment:Desirable LDL: less than 100 mg/dLNear Optimal/Above Optimal LDL: 110- 129 mg/dLBorderline High LDL: 130-159 mg/dLHigh LDL: 160-189 mg/dLVery High LDL: greater than or equal to 190 mg/dL HDL Cholesterol 38(L) >40 mg/dL [facility] Comment:Desirable HDL: great er than 40 mg/dL Note: This HDL assay may give artificially low results in patients with liver disease. Blood Venous blood specimen / Unknown 10/12/2024 8:14 AM EST 10/12/2024 11:13 AM EST us Nic Little MD LAB BLOOD ORDERABLES Final Result Performing Organization Address [facility]/ZIP Co de Phone Number [facility] [address] [place] [address] [phone] documented in this encounter Visit Diagnoses Diagnosis Primary hypertension- [...] documented as of this encounter Care Teams Conference Assistant Relationship Specialty Start Date End Date Nic Swain MD [address] [place] [address] PCP - General Internal Medicine 05/09/14 documented as of this encounter
--- OUTSIDE RECORDS SUMMARY | 2024-10-21 13:02 | XMS_ITS | Encounter Summary ---
Author Organization [employer] Address [address] [place] [address] 7 [place] [address] Care Team Providers Care Insurance Legal Assistant Name Role Phone Nic Swain MD Primary Care Provide r Encounter Details Date Type Department Care Team (Latest Contact Info) Description 07/01/2021 Abstract [facility] CONVERSIONS Dental, Provider, DDS Social History [...] Description 01/10/2025 1:15 PM EDT Office Visit [facility] MEDICINE [address] [place] [address] Nic Swain MD [address] [place] [address] 02/24/2025 8:00 AM EDT Office Visit [facility] ADULT DENTAL [address] [place] [address] Jamie Jeteraris [address] [place] [address] documented as of this encounter Visit Diagnoses Not on filedocumented in this encounter Care Teams Insurance Legal Assistant Relationship Specialty Start Date End Date Nic Swain MD [address] [place] [address] PCP - General Internal Medicine 05/09/14 documented as of this encounter
--- OUTSIDE RECORDS SUMMARY | 2024-10-21 13:02 | XMS_ITS | Encounter Summary ---
Author Organization [employer] Address [address] [facility] 7 [place] [address] Care Team Providers Care Alining Inspector Name Role Phone Nic Swain MD Primary Care Provide r Reason for Visit * Reason Comments Med Refill Encounter Details Date Type Department Care Team (Late st Contact Info) Description 05/08/2024 Refill [facility] MEDICINE [address] [place], [place] [phone] Nic Swain MD [address] [place], [place] [phone] Hypokalemia Social History Tobacco Use Types Packs/Day [...] Description 01/10/2025 1:15 PM EDT Office Visit [facility] MEDICINE [address] [place] [address] Nic Swain MD [address] [place] [address] 02/24/2025 8:00 AM EDT Office Visit [facility] ADULT DENTAL [address] [place] [address] Corona, Fela [address] [place] [address] documented as of this encounter Visit Diagnoses Diagnosis Hypokalemia Hypopotassemia documented in this encounter Additional Health Concerns Assessment Noted Time PHQ-9 Depression Total Score: 0 02/04/20 23 2:25 PM EDT documented as of this encounter Care Teams Alining Inspector Relationship Specialty Start Date End Date Nic Swain MD [address] [place] [address] PCP - General Internal Medicine 05/09/14 documented as of this encounter
[2024-10-21 13:46] LABS: Anion Gap 11 (12-20); Blood Urea Nitrogen 15 mg/dL (9-16); Calcium 8.8 mg/dL (8.4-10.2); Carbon Dioxide 32 mmol/L (22-29); Chloride 101 mmol/L (96-108); Estimated Glomerular Filt Rate > 60; Glucose Random 127 mg/dL (60-115); Potassium 3.5 mmol/L (3.3-5.1); Sodium 140 mmol/L (135-145)
== END 2024-10-21 12:21 | disposition home or self-care (01) ==
LOC: HO.HHCL 12:20
PROVIDERS: Visit Provider Internal Medicine
DX: E87.6 Hypokalemia (principal)
CPT/HCPCS: 36415; 80048

== ENCOUNTER 2024-11-01 08:06 | Outpatient (REF) | payer MEDICARE, SELFPAY ==
--- OUTSIDE RECORDS SUMMARY | 2024-11-01 08:17 | XMS_ITS | Clinical Summary ---
Author Organization [employer] Address [address] [place] [address] 7t [place] [address] Care Team Providers Care Corporate Technical Recruiter Name Role Phone Nic Swain MD Primary [...] was diagnosed with hypothyroidism while living in [place] Has been taking synthroid 50 mcg 1/2 [...] and Dr Nicolas Crystal his psychiatrist at [facility]. Pt was taking Klonopin 1mg po qhs He has been without for > 1 month Plan: Ambien 5 mg po at bedtime prescribed for insomnia He needs to reconnect with psychiatric services, referred to [facility] and our telephone order clerk Assessment & Plan (02/03/2023 2:36 PM EDT): Doing well Pt under the care of a psychotherapist and Dr Nicolas Crystal his psychiatrist at [facility]. Pt taking Klonopin 1mg po qhs Zaleplon 10 mg po qhs Encounters * This document contains information received from the source organization and may not represent a complete record from that organization. Date Type Department Care Team Description 10/31/[address] [address] Nic Swain MD Results; Lab Orders 10/21/2024 Orders Only [address] [address] Nic Swain MD Elevated glucose (Primary Dx) 10/13/[address] [address] Libby Rogers RN Results 10/11/2024 1:15 PM EST Office Visit [address] [address] Nic Swain MD Primary hypertension (Primary Dx); Stage 3a chronic kidney disease (CMS/HCC); Mixed hyperlipidemia; Anxiety; Abnormal serum thyroid stimulating hormone (TSH) level; Primary insomnia; Hypokalemia; Acquired hypothyroidism; Preventative health care 10/11/2024 Travel 10/05/2024 Telephone [facility] MEDICINE [address] [place] [address] Nic Swain MD Appointment Confirmation 09/26/2024 Telephone [facility] MED[facility]INE [address] [place] [address] Nic Swain MD Chart Prep from Last [...] 1:15 PM EDT Office Visit [facility] MED[facility]INE [address] [place] [address] Nic Swain MD [address] [place] [address] 02/24/2025 8:00 AM EDT Office Visit [facility] ADULT DENTAL [address] [place] [address] Fela Jeter [address] [place] [address] Health Maintenance Due Date Last Done Comments [...] Procedure Name Priority Date/Time Associated Diagnosis Comments BASIC METABOLIC PANEL Routine 10/21/2024 12:22 PM EST TSH W/REFLEX TO FT4 Routine 10/12/2024 8 [...] Relevant to Health Maintenance Results * (ABNORMAL) Basic Metabolic Panel (10/21/2024 12:22 PM EST) Only the most recent of2 resultswithin the time period is included. Sodium 140 135 - 145 mmol/L [facility] Potassium 3.5 3.3 - 5.1 mmol/L [facility] Chloride 101 96 - 108 mmol/L [facility] Carbon Dioxide 32(H) 22 - 29 mmol/L [facility] Anion Gap 11(L) 12 - 20 [facility] Urea Nitrogen (BUN) 15 9 - 16 mg/dL [facility] Creatinine, Serum 1.09 0.5 - 1.4 mg/dL [facility] Estimated Glomerular Filt Rate >60 [facility] Comment:Chronic Kidney Disea se: Estimated GFR < 60 mL/min/1.84w7Ambmob Kidney Disease: Estimated GFR < 15 mL/min/1.73m2 Glucose 127(H) 60 - 115 mg/dL [facility] Calcium 8.8 8.4 - 10.2 mg/dL [facility] 10/21/2024 12:2 2 PM EST 10/21/2024 1:06 PM EST Nic Little MD LAB BLOOD ORDERABLES Final Result Performing Organization Address [facility] Co de Phone Number [facility] [address] [place] [phone] * PSA, Screen (10/12/2024 8:14 AM EST) PSA, Total 1.03 <0.05 - 4.0 ng/mL [facility] Comment:PSA methodology: Kary Hameed i ChemiluminescentMicroparticle Immunoassay (CMIA) Blood Venous blood specimen / Unknown 10/12/2024 8:14 AM EST 10/12/2024 11:13 AM EST Nic Little MD LAB BLOOD ORDERABLES Final Result Performing Organization Address [facility]/ZIP Co de Phone Number [facility] [address] [place] [phone] * TSH with Reflex to Free T4 (10/12/2024 8:14 AM EST) TSH reflex Free T4 3.03 0.32 - 4.0 uIU/mL [facility] Blood Venous blood specimen / Unknown 10/12/2024 8:14 AM EST 10/12/2024 11:13 AM EST Nic Little MD LAB BLOOD ORDERABLES Final Result [facility] [address] [place] [phone] * (ABNORMAL) Lipid Panel, Standard (10/12/2024 8:14 AM EST) Triglycerides 118 <150 mg/dL [facility] Comment:Desirable Triglyceri de: less than 150 mg/dLBorderline High Triglyceride 150-199 mg/dLHigh Triglyceride: 200-499 mg/dLVery High Triglyceride: greater than or equal to 5OO mg/dL Cholesterol 128 <200 mg/dL [facility] Comment:Desirable Cholestero l: less than 200 mg/dLBorderline High Cholesterol: 200-239 mg/dLHigh Cholesterol: greater than 239 mg/dL LDL Cholesterol Calculated 67 <100 mg/dL [facility] Comment:Desirable LDL: less than 100 mg/dLNear Optimal/Above Optimal LDL: 110- 129 mg/dLBorderline High LDL: 130-159 mg/dLHigh LDL: 160-189 mg/dLVery High LDL: greater than or equal to 190 mg/dL HDL Cholesterol 38(L) >40 mg/dL [facility] Comment:Desirable HDL: great er than 40 mg/dL Note: This HDL assay may give artificially low results in patients with liver disease. Blood Venous blood specimen / Unknown 10/12/2024 8:14 AM EST 10/12/2024 11:13 AM EST Nic Little MD LAB BLOOD ORDERABLES Final Result [facility] [address] [place] [address] [phone] * Hm Colonoscopy (01/17/2014) Colonoscopy Normal Normal 01/17/2014 Narrative Kavita Paul - 01/17/2014 12:49 PM EDT Recommended 10 year follow up , unable to find path results follow up extracted from provider note us Historical Provider HEALTH MAINTENANCE Edited Result - Final from Last 3 Months or Most Recently Relevant to Health Maintenance [place] [address] [place] [phone] DENTAL - [facility] Care Teams Corporate Technical Recruiter Relationship Specialty Start Date End Date Nic Swain MD [address] [place] [phone] PCP - General Internal Medicine 05/09/14
--- OUTSIDE RECORDS SUMMARY | 2024-11-01 08:17 | XMS_ITS | Encounter Summary ---
Author Organization [employer] Address [address] [facility] 7t [place] [address] Care Team Providers Care Ekg Tech Name Role Phone Nic Swain MD [...] Description 01/10/2025 1:15 PM EDT Office Visit [facility] MEDICINE [address] [place] [address] Nic Swain MD [address] [place] [address] 02/24/2025 8:00 AM EDT Office Visit [facility] ADULT DENTAL [address] [place] [address] Corona, Fela [address] [place] [address] documented as of this encounter Visit Diagnoses Not on filedocumented in this encounter Additional Health Concerns Assessment Noted Time PHQ-9 Depression Total Score: 1 10/11/19 25 1:15 PM EST documented as of this encounter Care Teams Ekg Tech Relationship Specialty Start Date End Date Nic Swain MD [address] [place] [address] PCP - General Internal Medicine 05/09/14 documented as of this encounter
--- OUTSIDE RECORDS SUMMARY | 2024-11-01 08:17 | XMS_ITS | Encounter Summary ---
Author Organization [employer] Address [address] [place] [address] 7 [place] [address] Care Team Providers Care Bicycle Service Technician Name Role Phone Nic Swain MD Primary Care Provide r Encounter Details Date Type Department Care Team (Latest Contact Info) Description 11/16/2018 Abstract [facility] CONVERSIONS Dental, Provider, DDS Social History [...] Description 01/10/2025 1:15 PM EDT Office Visit [facility] MEDICINE [address] [place] [address] Nic Swain MD [address] [place] [address] 02/24/2025 8:00 AM EDT Office Visit [facility] ADULT DENTAL [address] [place] [address] Jamie Jeteraris [address] [place] [address] documented as of this encounter Visit Diagnoses Not on filedocumented in this encounter Care Teams Bicycle Service Technician Relationship Specialty Start Date End Date Nic Swain MD [address] [place] [address] PCP - General Internal Medicine 05/09/14 documented as of this encounter
--- OUTSIDE RECORDS SUMMARY | 2024-11-01 08:17 | XMS_ITS | Clinical Summary ---
Author Organization [facility] Address [address] [facility] [address] [place] [phone] Phone Care Team Providers Care Card Seller Name Role Phone Nic Chinchilla MD Primary [...] patient's age to complete this topic Insurance [id number] MEDICARE [facility] MEDICARE Care Teams Card Seller Relationship Specialty Start Date End Date Nic Chinchilla MD PCP - General Internal Medicine 04/24/21
--- OUTSIDE RECORDS SUMMARY | 2024-11-01 08:17 | XMS_ITS | Encounter Summary ---
Author Organization [employer] Address [address] [place] [address] 7 [place] [address] Care Team Providers Care Legislative Director Name Role Phone Nic Swain MD Primary Care Provide r Encounter Details Date Type Department Care Team (Latest Contact Info) Description 07/01/2021 Abstract [facility] CONVERSIONS Dental, Provider, DDS Social History [...] Description 01/10/2025 1:15 PM EDT Office Visit [facility] MEDICINE [address] [place] [address] Nic Swain MD [address] [place] [address] 02/24/2025 8:00 AM EDT Office Visit [facility] ADULT DENTAL [address] [place] [address] Jamie Jeteraris [address] [place] [address] documented as of this encounter Visit Diagnoses Not on filedocumented in this encounter Care Teams Legislative Director Relationship Specialty Start Date End Date Nic Swain MD [address] [place] [address] PCP - General Internal Medicine 05/09/14 documented as of this encounter
--- OUTSIDE RECORDS SUMMARY | 2024-11-01 08:18 | XMS_ITS | Encounter Summary ---
Author Organization [employer] Address [address] [place] [address] 7 [place] [address] Care Team Providers Care Health And Physical Education Professor Name Role Phone Nic Swain MD Primary Care Provide r Reason for Visit * Reason Onset Date Comments Results 10/13/2024 Encounter Details Date Type Department Care Team ([facility] st Contact Info) Description 10/13/2024 Telephone [facility] MEDICINE [address] [place], [place] [phone] Libby Rogers RN [address] [place], [place] [phone] Results Social History Tobacco Use Types Packs/Day [...] encounter Miscellaneous Notes * Telephone Encounter - Marsha Morgan RN - 10/24/2024 9:14 AM EST Pt did come and got labs drawn, potassium 3.5. Educated on medication regimen. * Telephone Encounter - Libby Rogers RN - 10/13/2024 3:30 PM EST While reviewing PAQ, reviewed pt with K of 3.2. Pt with Hx of hypokalemia. On hydrochlorothiazide and Klor-con 10MEQ daily. However, pt was in [place] last month and didn't have enough klor-con to last the whole trip so was taking every other day. He now is back. Discussed with PCP face to face. Orders are for pt to resume daily Klor-con and recheck labs in 1 wee. Pt informed of this. States will comein or Thursday next week. Orders placed. Reminder sent to green nurses to make sure he comesin. documented in this encounter Plan of Treatment Upcoming Encounters Date Type Department Care Team (Late st Contact Info) Description 01/10/2025 1:15 PM EDT Office Visit [address] [address] Nic Swain MD [address] [place] [address] 02/24/2025 8:00 AM EDT Office Visit [facility] ADULT DENTAL [address] [place] [address] Fela Jeter [address] [place] [address] Scheduled Orders Name Type Priority Associated Diagnoses Orde r Schedule Basic Metabolic Panel Lab Routine Hypokalemia Expected: 10/13/2024 (Approximate), Expires: 10/13/2025 documented as of this encounter Visit Diagnoses Diagnosis Hypokalemia Hypopotassemia documented in this encounter Additional Health Concerns Assessment Noted Time PHQ-9 Depression Total Score: 1 10/11/19 25 1:15 PM EST documented as of this encounter Care Teams Health And Physical Education Professor Relationship Specialty Start Date End Date Nic Swain MD [address] [place] [address] PCP - General Internal Medicine 05/09/14 documented as of this encounter
--- OUTSIDE RECORDS SUMMARY | 2024-11-01 08:18 | XMS_ITS | Encounter Summary ---
Author Organization [employer] Address [address] [facility] 7 [place] [address] Care Team Providers Care Financial Consultant Name Role Phone Nic Swain MD Primary Care Provide r Reason for Visit * Reason Comments Med Refill Encounter Details Date Type Department Care Team (Late st Contact Info) Description 11/12/2023 Refill [facility] MEDICINE [address] [place], [place] [phone] Nic Swain MD [address] [place], [place] [phone] Primary hypertension Social History Tobacco Use Types [...] Description 01/10/2025 1:15 PM EDT Office Visit [facility] MEDICINE [address] [place] [address] Nic Swain MD [address] [place] [address] 02/24/2025 8:00 AM EDT Office Visit [facility] ADULT DENTAL [address] [place] [address] Corona, Fela [address] [place] [address] documented as of this encounter Visit Diagnoses Diagnosis Primary hypertension Unspecified essential hypertension documented in this encounter Additional Health Concerns Assessment Noted Time PHQ-9 Depression Total Score: 0 02/04/20 23 2:25 PM EDT documented as of this encounter Care Teams Financial Consultant Relationship Specialty Start Date End Date Nic Swain MD [address] [place] [address] PCP - General Internal Medicine 05/09/14 documented as of this encounter
--- OUTSIDE RECORDS SUMMARY | 2024-11-01 08:18 | XMS_ITS | Encounter Summary ---
Author Organization [employer] Address [address] [facility] 7 [place] [address] Care Team Providers Care Jr. Systems Administrator Name Role Phone Nic Swain MD Primary Care Provide r Reason for Visit * Reason Comments Med Refill Encounter Details Date Type Department Care Team (Late st Contact Info) Description 05/08/2024 Refill [facility] MEDICINE [address] [place], [place] [phone] Nic Swain MD [address] [place], [place] [phone] Hypokalemia Social History Tobacco Use Types Packs/Day [...] Description 01/10/2025 1:15 PM EDT Office Visit [facility] MEDICINE [address] [place] [address] Nic Swain MD [address] [place] [address] 02/24/2025 8:00 AM EDT Office Visit [facility] ADULT DENTAL [address] [place] [address] Corona, Fela [address] [place] [address] documented as of this encounter Visit Diagnoses Diagnosis Hypokalemia Hypopotassemia documented in this encounter Additional Health Concerns Assessment Noted Time PHQ-9 Depression Total Score: 0 02/04/20 23 2:25 PM EDT documented as of this encounter Care Teams Jr. Systems Administrator Relationship Specialty Start Date End Date Nic Swain MD [address] [place] [address] PCP - General Internal Medicine 05/09/14 documented as of this encounter
--- OUTSIDE RECORDS SUMMARY | 2024-11-01 08:18 | XMS_ITS | Encounter Summary ---
Author Organization [employer] Address [address] [place] [address] 7 [place] [address] Care Team Providers Care Infection Control Nurse Name Role Phone Nic Swain MD Primary Care Provide r Reason for Visit * Reason Onset Date Comments Results 10/31/2024 Lab Orders 10/31/2024 Encounter Details Date Type Department Care Team ([facility] st Contact Info) Description 10/31/2024 Telephone [facility] MEDICINE [address] [place], [place] [phone] Nic Swain MD [address] [place], [place] [phone] Results; Lab Orders Social History Tobacco Use Types Packs/Day Years [...] Telephone Encounter - Marsha Morgan RN - 10/31/2024 4:32 PM EST Called pt, advised him that lab results show elevated blood sugar and advised that PCP placed fasting labs to recheck blood glucose and A1C level. Pt asked if this is [place] order, explained that sooner is better for results, pt stated he will go to [facility] lab at end of this week or beginning of next. Advised him PCP will look out for results. Pt verbalized understanding, no further questions. * Telephone Encounter - Marsha Morgan RN - 10/31/2024 4:22 PM EST ----- Message from Nic Little MD sent at 10/31/2024 4:01 PM EST ----- Please contact patient. His FBG was 127. We need to repeat and add Hgb A1c to rule DM documented in this encounter Plan of Treatment Upcoming Encounters Date Type Department Care Team ([facility] st Contact Info) Description 01/10/2025 1:15 PM EDT Office Visit [facility] MEDICINE [address] [place] [phone] Nic Swain MD [address] [place] [address] 02/24/2025 8:00 AM EDT Office Visit [facility] ADULT DENTAL [address] [place], [place] [phone] Corona, Fela [address] [place], [place] [phone] documented as of this encounter Visit Diagnoses Not on filedocumented in this encounter Additional Health Concerns Assessment Noted Time PHQ-9 Depression Total Score: 1 10/11/19 25 1:15 PM EST documented as of this encounter Care Teams Infection Control Nurse Relationship Specialty Start Date End Date Nic Swain MD [address] [place] [address] PCP - General Internal Medicine 05/09/14 documented as of this encounter
--- OUTSIDE RECORDS SUMMARY | 2024-11-01 08:18 | XMS_ITS | Encounter Summary ---
Author Organization [employer] Address [address] [facility] 7t [place] [address] Care Team Providers Care Computational Mathematician Name Role Phone Nic Swain MD Primary Care Provide r Encounter Details Date Type Department Care Team ([facility] st Contact Info) Description 10/21/2024 Orders Only [facility] MEDICINE [address] [place], [place] [phone] Nic Swain MD [address] [place], [place] [phone] Elevated glucose (Primary Dx) Social History Tobacco Use Types Packs/Day Years [...] as of this encounter Miscellaneous Notes * Result Encounter Note - Nic Little MD - 10/21/2024 1:46 PM EST Please contact patient. His FBG was 127. We need to repeat and add Hgb A1c to rule DM * Addendum Note - Nic Little MD - 10/21/2024 1:46 PM ESTAddended by: NIC GARAY on: 10/31/2024 04:01 PM Modules accepted: Orders documented in this encounter Plan of Treatment Upcoming Encounters Date Type Department Care Team (Late st Contact Info) Description 01/10/2025 1:15 PM EDT Office Visit [facility] MEDICINE [address] [place] [address] Nic Swain MD [address] [place] [address] 02/24/2025 8:00 AM EDT Office Visit [facility] ADULT DENTAL [address] [place] [address] Fela Jeter [address] [place] [address] Scheduled Orders Name Type Priority Associated Diagnoses Orde r Schedule Glucose, Fasting Lab Routine Elevated glucose Expected: 10/31/2024 (Approximate), Expires: 10/31/2025 Hemoglobin A1c Lab Routine Elevated glucose Expected: 10/31/2024 (Approximate), Expires: 10/31/2025 documented as of this encounter Procedures Procedure Name Priority Date/Time Associated Diagnosis Comments BASIC METABOLIC PANEL Routine 10/21/2024 12:22 PM EST documented in this encounter Results * (ABNORMAL) Basic Metabolic Panel (10/21/2024 12:22 PM EST) Sodium 140 135 - 145 mmol/L [facility] Potassium 3.5 3.3 - 5.1 mmol/L [facility] Chloride 101 96 - 108 mmol/L [facility] Carbon Dioxide 32(H) 22 - 29 mmol/L [facility] Anion Gap 11(L) 12 - 20 [facility] Urea Nitrogen (BUN) 15 9 - 16 mg/dL [facility] Creatinine, Serum 1.09 0.5 - 1.4 mg/dL [facility] Estimated Glomerular Filt Rate >60 [facility] Comment:Chronic Kidney Disea se: Estimated GFR < 60 mL/min/1.07l3Fexlzv Kidney Disease: Estimated GFR < 15 mL/min/1.73m2 Glucose 127(H) 60 - 115 mg/dL [facility] Calcium 8.8 8.4 - 10.2 mg/dL [facility] 10/21/2024 12:2 2 PM EST 10/21/2024 1:06 PM EST us Nic Little MD LAB BLOOD ORDERABLES Final Result [facility] [address] [place] [phone] [phone] documented in this encounter Visit Diagnoses Diagnosis Elevated glucose- Primary Other abnormal glucose documented in this encounter Additional Health Concerns Assessment Noted Time PHQ-9 Depression Total Score: 1 10/11/19 25 1:15 PM EST documented as of this encounter Care Teams Computational Mathematician Relationship Specialty Start Date End Date Nic Swain MD [address] [place] [phone] PCP - General Internal Medicine 05/09/14 documented as of this encounter
--- OUTSIDE RECORDS SUMMARY | 2024-11-01 08:18 | XMS_ITS | Encounter Summary ---
Author Organization [employer] Address [address] [place] [address] [address] [place] [address] Care Team Providers Care Window Glass Installer Name Role Phone Nic Swain MD Primary Care Provide r Reason for Referral * Consultation (Routine) - Pending Review Specialty Diagnoses / Procedures Referred By Amanda curiel Referred To Contact Gastroenterology Diagnoses Preventative health care Nic Swain MD [address] [place] [address] Phone: tel: fax: Doug Huang MD [address] [place] [address] [address] [facility] [address] [place] [address] Phone: tel: fax: Referral ID Status Reason Start Date Expiration Date Visits Requested Visits Authorized [id number] Pending Review Specialty Services Required 10/11/2024 10/11/2025 1 1 * Consultation (Routine) - Pending Review Specialty Diagnoses / Procedures Referred By Amanda t Referred To Contact Psychiatry / Behavioral Health Diagnoses Anxiety Nic Swain MD [address] [place] [address] Phone: tel: fax: Referral ID Status Reason Start Date Expiration Date Visits Requested Visits Authorized [id number] Pending Review Specialty Services Required 10/11/2024 10/11/2025 1 1 * Consultation (Routine) - Closed Specialty Diagnoses / Procedures Referred By Conttravis t Referred To Contact Behavioral Health Diagnoses Anxiety Nic Swain MD [address] [place] [address] Phone: tel: fax: Referral ID Status Reason Start Date Expiration Date V isits Requested Visits Authorized [id number] Closed Specialty Services Required 10/11/2024 10/11/2025 1 1 Reason for Visit * Reason Comments Follow-up Encounter Details Date Type Department Care Team ([facility] st Contact Info) Description 10/11/2024 1:15 PM EST Office Visit [facility] [address] [place] [address] Nic Swain MD [address] [place] [address] Primary hypertension (Primary Dx); Stage 3a chronic [...] and Dr Nicolas Crystal his psychiatrist at [facility]. Pt was taking Klonopin 1mg po qhs He has been without for > 1 month Plan: Ambien 5 mg po at bedtime prescribed for insomnia He needs to reconnect with psychiatric services, referred to [facility] and our electronics technician Relevant Orders Referral to Behavioral Health Referral to Behavioral Health Psychiatry TSH with Reflex to Free T4 Abnormal serum thyroid stimulating hormone (TSH) level Pt apparently was diagnosed with hypothyroidism while living in [place] Has been taking synthroid 50 mcg 1/2 tab po daily Continue for that Plan: Repeat TSH Preventative health care ANDERSON: PSA 12/25/20 Normal, Will repeat Colonoscopy: Normal 01/17/2014 Dr Jase Wright. Pt moving to [place] will need one once he has relocated [...] was diagnosed with hypothyroidism while living in [place] Has been taking synthroid 50 mcg 1/2 tab po daily Continue for that Plan: Repeat TSH * Assessment & Plan Note - Nic Little MD - 10/11/2024 1:23 PM EST Associated Problem(s): Anxiety Doing well Pt used to be under the care of a psychotherapist and Dr Nicolas Crystal his psychiatrist at [facility]. Pt was taking Klonopin 1mg po qhs He has been without for > 1 month Plan: Ambien 5 mg po at bedtime prescribed for insomnia He needs to reconnect with psychiatric services, referred to [facility] and our electronics technician * Assessment & Plan Note - Nic Little MD - 10/11/2024 1:13 PM EST Associated Problem(s): Preventative health care ANDERSON: PSA 12/25/20 Normal, Will repeat Colonoscopy: Normal 01/17/2014 Dr Jase Wright. Pt moving to [place] will need one once he has relocated [...] Description 01/10/2025 1:15 PM EDT Office Visit [facility] [address] [place] [address] Nic Swain MD [address], [place] [phone] 02/24/2025 8:00 AM EDT Office Visit [facility] ADULT DENTAL [address] [place] [address] Jamie Jeteraris [address], [place] [phone] Scheduled Referrals Name Type Priority Associated Diagnoses [...] Free T4 3.03 0.32 - 4.0 uIU/mL [facility] Blood Venous blood specimen / Unknown 10/12/2024 8:14 AM EST 10/12/2024 11:13 AM EST us Nic Little MD LAB BLOOD ORDERABLES Final Result [facility] [address] [place] [address] [phone] * PSA, Screen (10/12/2024 8:14 AM EST) [facility] PSA, Total 1.03 <0.05 - 4.0 ng/mL [facility] Comment:PSA methodology: Kary Hameed i ChemiluminescentMicroparticle Immunoassay (CMIA) Blood Venous blood specimen / Unknown 10/12/2024 8:14 AM EST 10/12/2024 11:13 AM EST Nic Little MD LAB BLOOD ORDERABLES Final Result [facility] [address] [place] [phone] * (ABNORMAL) Basic Metabolic Panel (10/12/2024 8:14 AM EST) [facility] Sodium 139 135 - 145 mmol/L [facility] Potassium 3.2(L) 3.3 - 5.1 mmol/L [facility] Chloride 101 96 - 108 mmol/L [facility] Carbon Dioxide 32(H) 22 - 29 mmol/L [facility] Anion Gap 9(L) 12 - 20 [facility] Urea Nitrogen (BUN) 16 9 - 16 mg/dL [facility] Creatinine, Serum 1.07 0.5 - 1.4 mg/dL [facility] Estimated Glomerular Filt Rate >60 [facility] Comment:Chronic Kidney Disea se: Estimated GFR < 60 mL/min/[id number] Kidney Disease: Estimated GFR < 15 mL/min/1.73m2 Glucose 114 60 - 115 mg/dL [facility] Calcium 8.9 8.4 - 10.2 mg/dL [facility] Blood Venous blood specimen / Unknown 10/12/2024 8:14 AM EST 10/12/2024 11:13 AM EST Nic Little MD LAB BLOOD ORDERABLES Final Result Performing Organization Address [facility] Co de Phone Number [facility] [address] [place] [phone] * (ABNORMAL) Lipid Panel, Standard (10/12/2024 8:14 AM EST) Triglycerides 118 <150 mg/dL [facility] Comment:Desirable Triglyceri de: less than 150 mg/dLBorderline High Triglyceride 150-199 mg/dLHigh Triglyceride: 200-499 mg/dLVery High Triglyceride: greater than or equal to 5OO mg/dL Cholesterol 128 <200 mg/dL [facility] Comment:Desirable Cholestero l: less than 200 mg/dLBorderline High Cholesterol: 200-239 mg/dLHigh Cholesterol: greater than 239 mg/dL LDL Cholesterol Calculated 67 <100 mg/dL [facility] Comment:Desirable LDL: less than 100 mg/dLNear Optimal/Above Optimal LDL: 110- 129 mg/dLBorderline High LDL: 130-159 mg/dLHigh LDL: 160-189 mg/dLVery High LDL: greater than or equal to 190 mg/dL HDL Cholesterol 38(L) >40 mg/dL [facility] Comment:Desirable HDL: great er than 40 mg/dL Note: This HDL assay may give artificially low results in patients with liver disease. Blood Venous blood specimen / Unknown 10/12/2024 8:14 AM EST 10/12/2024 11:13 AM EST us Nic Little MD LAB BLOOD ORDERABLES Final Result Performing Organization Address [facility]/ZIP Co de Phone Number [facility] [address] [place] [phone] documented in this encounter Visit Diagnoses [...] documented as of this encounter Care Teams Window Glass Installer Relationship Specialty Start Date End Date Nic Swain MD [address] [place] [address] PCP - General Internal Medicine 05/09/14 documented as of this encounter
--- OUTSIDE RECORDS SUMMARY | 2024-11-01 08:18 | XMS_ITS | Encounter Summary ---
Author Organization [employer] Address [address] [place] [address] 7 [place] [address] Care Team Providers Care Ic Designer Custom Name Role Phone Nic Swain MD Primary Care Provide r Reason for Visit * Reason Onset Date Comments Appointment Confirmation 10/05/2024 Encounter Details Date Type Department Care Team ([facility] st Contact Info) Description 10/05/2024 Telephone [facility] [address] [place], [place] [phone] Nic Swain MD [address] [place], [place] [phone] Appointment Confirmation Social History Tobacco Use Types [...] Description 01/10/2025 1:15 PM EDT Office Visit [facility] [address] [place] [address] Nic Swain MD [address] [place] [address] 02/24/2025 8:00 AM EDT Office Visit [facility] ADULT DENTAL [address] [place] [address] [place], Fela [address] [place] [address] documented as of this encounter Visit Diagnoses Not on filedocumented in this encounter Additional Health Concerns Assessment Noted Time PHQ-9 Depression Total Score: 0 02/04/20 23 2:25 PM EDT documented as of this encounter Care Teams Ic Designer Custom Relationship Specialty Start Date End Date Nic Swain MD [address] [place] [phone] PCP - General Internal Medicine 05/09/14 documented as of this encounter
--- OUTSIDE RECORDS SUMMARY | 2024-11-01 08:18 | XMS_ITS | Encounter Summary ---
Author Organization [employer] Address [address] [place] [address] 7 [place] [address] Care Team Providers Care Detention Attendant Name Role Phone Nic Swain MD Primary Care Provide r Encounter Details Date Type Department Care Team (Late st Contact Info) Description 01/02/2023 Abstract [facility] [address] [place], [place] [phone] Nic Swain MD [address] [place], [place] [phone] Social History Tobacco Use Types Packs/Day Years [...] Description 01/10/2025 1:15 PM EDT Office Visit [facility] [address], [place] [phone] Nic Swain MD [address] [place], [place] [phone] 02/24/2025 8:00 AM EDT Office Visit [facility] ADULT DENTAL [address] [place] [address] Fela Jeter [address] [place] [address] documented as of this encounter Procedures Procedure Name Priority Date/Time Associated Diagnosis Comments COLONOSCOPY Routine 01/17/2014 documented in this encounter Results * Colonoscopy (01/17/2014) Colonoscopy Normal Normal 01/17/2014 Narrative Beverly, Kavita - 01/17/2014 12:49 PM EDT Recommended 10 year follow up , unable to find path results follow up extracted from provider note Historical Provider [employer] MAINTENANCE Edited Result - Final documented in this encounter Visit Diagnoses Not on filedocumented in this encounter Care Teams Detention Attendant Relationship Specialty Start Date End Date Nic Swain MD [address] [place] [address] PCP - General Internal Medicine 05/09/14 documented as of this encounter
[2024-11-01 11:44] LABS: Glucose Fasting 119 mg/dL (60-99)
[2024-11-01 16:19] LABS: Estimated Average Glucose 137 mg/dL; Hemoglobin A1C 181.8119 umol/L; Hemoglobin A1c % 6.4 % (<6.0); Total Hemoglobin (HGBA1C) 3872.5838 umol/L
== END 2024-11-01 08:07 | disposition home or self-care (01) ==
LOC: HO.HHCL 08:06
PROVIDERS: Visit Provider Internal Medicine
DX: R73.09 Other abnormal glucose (principal)
CPT/HCPCS: 36415; 82947; 83036